=== PATIENT | male | born 1970 | race African-American/Black ===

== ENCOUNTER 2016-08-17 17:23 | Emergency (ER) | payer SELFPAY ==
[~2016-08-17] VITALS: Ht 177.8 cm; Wt 93.0 kg
[~2016-08-17 17:23] MED LIST: ACYC400T PO; ACYC800T PO; AMLO5TAB4 PO; HYDR-971 PO; HYDR1TAB19; HYDR25TA9 PO; OXYC-323 PO; OXYC1TAB9 PO; QUIN40TA PO; SULF1TAB24 PO
[2016-08-17 18:04] VITALS: BP 154/85
--- NOTE | 2016-08-17 18:37 | PHYS DOC ---
Past Medical History Past Medical History: Hypertension, STD Additional Past Medical Histor: genital herpes, CHRONIC BACK PAIN Past Surgical History: No Surgical History Additional Past Surgical Histo: R ankle Fx, cyst removed from R nipple Alcohol Use: Rarely Drug Use: None Adult General Chief Complaint Chief Complaint: SHOULDER INJURY HPI HPI Patient is a 46 year old male who presents with atraumatic left shoulder and arm pain that is worse with movement. Pain started one week ago. Reports he has tried several medications at home but is unable to report exact kinds or names. Denies shortness of breath, chest pain, edema, prior medical problems. Review of Systems Review of Systems Constitutional: Denies fever or chills Eyes: Denies change in visual acuity, redness, or eye pain HENT: Denies nasal congestion or sore throat Respiratory: Denies cough or shortness of breath Cardiovascular: No additional information not addressed in HPI GI: Denies abdominal pain, nausea, vomiting, bloody stools or diarrhea : Denies dysuria or hematuria Musculoskeletal: Left shoulder pain Integument: Denies rash or skin lesions Neurologic: Denies headache, focal weakness or sensory changes [] Endocrine: Denies polyuria or polydipsia [] Current Medications Current Medications Current Medications Medications (Trade) Dose Ordered Sig/Kylah Start Time Stop Time Status Last Admin Dose Admin Tramadol HCl (Ultram) 50 mg 1X ONCE 08/17/16 19:15 08/17/16 19:15 DC 08/17/16 18:48 50 MG Allergies Allergies Allergies Coded Allergies Type Severity Reaction Last Updated Verified aspirin Allergy Intermediate rash 03/14/14 Yes Physical Exam Physical Exam Constitutional: Well developed, well nourished, no acute distress, non-toxic appearance. HENT: Normocephalic, atraumatic, bilateral external ears normal, oropharynx moist, no oral exudates, nose normal. Eyes: PERRLA, EOMI, conjunctiva normal, no discharge. Neck: Normal range of motion, no tenderness, supple, no stridor. Cardiovascular:Heart rate regular rhythm, no murmur Lungs & Thorax: Bilateral breath sounds clear to auscultation Abdomen: Bowel sounds normal, soft, no tenderness, no masses, no pulsatile masses. Skin: Warm, dry, no erythema, no rash. Back: No tenderness, no CVA tenderness. Extremities: Full ROM with pain. tenderness on palpation of all aspects of shoulder. No deformity noted. Neurologic: Alert and oriented X 3, normal motor function, normal sensory function, no focal deficits noted. [] Psychologic: Affect normal, judgement normal, mood normal. [] Current Patient Data Vital Signs Vital Signs Date Time Temp Pulse Resp B/P Pulse Ox O2 Delivery O2 Flow Rate FiO2 08/17/16 18:04 98.4 90 20 100 Room Air 98.4 EKG EKG [] Radiology/Procedures Radiology/Procedures [] Impressions: 1. Left shoulder pain Course & Med Decision Making Course & Med Decision Making Pertinent Labs and Imaging studies reviewed. (See chart for details) [] Dragon Disclaimer Dragon Disclaimer This electronic medical record was generated, in whole or in part, using a voice recognition dictation system. Departure Departure Impression: Primary Impression: Shoulder pain, left Disposition: 01 HOME, SELF-CARE Condition: STABLE Referrals: NO PCP (PCP) MEME SAVAGE MD Patient Instructions: Shoulder Pain, [id number] Additional Instructions: 1. Take medication as prescribed. 2. Wear sling and follow up with Ortho as discussed 3. Return if problems or concerns ANNABEL RIVERA APRN Aug 17, 2016 18:37
[2016-08-17] MEDS ORDERED: TRAMADOL 50 MG TABLET. PO ONE (19:15)
== END 2016-08-17 18:52 | disposition home or self-care (01) ==
LOC: ER 17:23
DX: M25.512 Pain in left shoulder (principal); I10 Essential (primary) hypertension; G89.29 Other chronic pain; Z88.6 Allergy status to analgesic agent
CPT/HCPCS: 99283

== ENCOUNTER 2016-10-29 17:04 | Emergency (ER) | payer SELFPAY ==
[~2016-10-29] VITALS: Ht 177.8 cm; Wt 86.2 kg
[2016-10-29 17:30] VITALS: BP 151/101
[2016-10-29] MEDS ORDERED: VALA10005 PO (20:14)
[2016-10-29] MEDS ORDERED: TRAM-29 PO (20:14)
--- NOTE | 2016-10-29 20:14 | PHYS DOC ---
Past Medical History Past Medical History: Hypertension Additional Past Medical Histor: genital herpes, CHRONIC BACK PAIN Past Surgical History: Other Additional Past Surgical Histo: R ankle surgery, cyst removed from R chest Smoking: Less than 1pk/day Alcohol Use: None Drug Use: None Adult General Chief Complaint Chief Complaint: HAND PROBLEM HPI HPI Patient is a 46 year old male who presents with left hand pain for 4-5 days. He denies any injury. The pain is primarily in the left thumb, along the first metacarpal, and into the radial side of the wrist. He notices mild swelling of the area as well. He is left-hand dominant. 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 The patient also has a history of genital herpes. He states that he noticed new lesions starting yesterday. He sees a PCP at [facility]. Review of Systems Review of Systems Constitutional: Denies fever or chills. [] Musculoskeletal: Denies back pain. Reports left hand and thumb pain with mild swelling. Integument: Denies rash or skin lesions. Denies erythema or warmth of the left hand. Reports genital herpes lesions. Neurologic: Denies headache, focal weakness or sensory changes. [] Allergies Allergies Allergies Coded Allergies Type Severity Reaction Last Updated Verified aspirin Allergy Intermediate rash 03/14/14 Yes Physical Exam Physical Exam Constitutional: Well developed, well nourished, no acute distress, non-toxic appearance. [] HENT: Normocephalic, atraumatic, oropharynx moist. [] Eyes: PERRLA, EOMI, conjunctiva normal, no discharge. [] Skin: Warm, dry, no erythema. There is no erythema or warmth of the left hand to suggest infection. There are no external signs of trauma. Extremities: There is tenderness of the left hand extending along the dorsum of the thumb to the first metacarpal and to the radial side of the wrist, normal flexion with decreased extension, minimal edema. 2+ radial and ulnar pulses. Less than 2 second capillary refill distally. Light touch sensation intact distally. Neurologic: Alert and oriented X 3, normal motor function, normal sensory function, no focal deficits noted. [] Psychologic: Affect normal, judgement normal, mood normal. [] Current Patient Data Vital Signs Vital Signs Date Time Temp Pulse Resp B/P Pulse Ox O2 Delivery O2 Flow Rate FiO2 10/29/16 17:30 98.1 93 18 100 Room Air 98.1 EKG EKG [] Radiology/Procedures Radiology/Procedures Three-view x-ray of the left hand reviewed and interpreted by myself with Dr. Lemus. There are no acute fractures or dislocations. Course & Med Decision Making Course & Med Decision Making Pertinent Labs and Imaging studies reviewed. (See chart for details) Patient presents with signs and symptoms of de Quervain's tenosynovitis of the left hand. X-rays negative for bony injury. There are no signs of infection on exam. The patient is provided with a Velcro thumb spica splint. He is instructed to take ibuprofen at home for the inflammation. He is discharged home with prescriptions for Ultram and also Valtrex for his herpes outbreak. He' s given contact information for orthopedics for follow-up. Return precautions were discussed. He verbalizes understanding and agrees with plan. Dragon Disclaimer Dragon Disclaimer This electronic medical record was generated, in whole or in part, using a voice recognition dictation system. Departure Departure Impression: Primary Impression: De Quervain's tenosynovitis, left Additional Impression: Genital herpes Disposition: 01 HOME, SELF-CARE Condition: STABLE Referrals: IRENE VALENCIA MD Patient Instructions: De Quervain's Tenosynovitis-SportsMed, Genital Herpes Additional Instructions: Your x-ray did not show any broken bones or dislocations. You appear to have inflammation of a tendon in your hand causing the pain and swelling. Please take the prescribed pain medication as instructed. Do not drive or operate heavy machinery while taking pain medication. Please take ibuprofen at home to help decrease the inflammation in your hand. Please wear the provided splint to help decrease movement in your hand to help decrease your pain. Please follow-up with the orthopedic doctor listed below if your pain continues. Please follow-up with a primary care doctor regarding your genital herpes. Return to the emergency department if you have any new or concerning symptoms. Scripts Valacyclovir Hcl (Valtrex)1,000 Mg Tablet1 Tab PO DAILY 5 Days Prov:JESUSITA ADAMS 10/29/16 Tramadol Hcl (Ultram)50 Mg [id number] Mg PO Q6H PRN PAIN #20 TAB Prov:JESUSITA ADAMS 10/29/16 Problem Qualifiers Additional Impression: Genital herpes Herpes simplex infection site: unspecified Qualified Code: A60.00 - Herpesviral infection of urogenital system, unspecified JESUSITA ADAMS Oct 29, 2016 20:14
--- NOTE | 2016-10-30 07:58 | RAD ---
Indication pain particularly involving the thumb. No history of injury. AP oblique and lateral views of the left hand were obtained. There are some degenerative changes at the first metacarpal phalangeal joint. Acute bony finding is not seen. Small bony density at the base of the first metacarpal, on the ulnar side, is chronic and has an appearance similar to a study 09/18/2006. IMPRESSION: No acute bony finding
== END 2016-10-29 20:17 | disposition home or self-care (01) ==
LOC: ER 17:04
DX: M65.4 Radial styloid tenosynovitis [de Quervain] (principal); B00.9 Herpesviral infection, unspecified; I10 Essential (primary) hypertension; F17.200 Nicotine dependence, unspecified, uncomplicated; G89.29 Other chronic pain; Z88.6 Allergy status to analgesic agent
CPT/HCPCS: 73130; 99284

== ENCOUNTER 2017-03-28 16:55 | Emergency (ER) | payer SELFPAY ==
[~2017-03-28] VITALS: Ht 175.3 cm; Wt 88.5 kg
[~2017-03-28 16:55] MED LIST changes: +TRAM-48 PO; +VALA10005 PO
[2017-03-28 17:17] VITALS: BP 176/85
[2017-03-28] MEDS ORDERED: ACYCLOVIR 200 MG CAPSULE. PO STA (17:21)
[2017-03-28] MEDS ORDERED: oxyCODONE/APAP 5/325 1 TAB TABLET PO ONE (17:30)
[2017-03-28] MEDS ORDERED: SULF1TAB24 PO (17:34)
[2017-03-28] MEDS ORDERED: OXYC-323 PO (17:34)
[2017-03-28] MEDS ORDERED: ACYC800T PO (17:34)
[2017-03-28] MEDS ORDERED: NYST15CR TP (17:34)
--- NOTE | 2017-03-28 17:35 | PHYS DOC ---
Past Medical History Past Medical History: Hypertension Additional Past Medical Histor: genital herpes, CHRONIC BACK PAIN Past Surgical History: Other Additional Past Surgical Histo: R ankle surgery, cyst removed from R chest Alcohol Use: None Drug Use: None Adult General Chief Complaint Chief Complaint: SEXUALLY TRANSMITTED DISEASE HPI HPI Patient is a 46 year old male with history of hypertension and herpes who presents today for herpes outbreak that began a couple days ago. Patient denies any concerns for STDs. He is also complaining of a no rash on the left external ear with drainage. Review of Systems Review of Systems Constitutional: Denies fever or chills [] Eyes: Denies change in visual acuity, redness, or eye pain [] HENT: left external ear lesions. Respiratory: Denies cough or shortness of breath [] Cardiovascular: No additional information not addressed in HPI [] GI: Denies abdominal pain, nausea, vomiting, bloody stools or diarrhea [] : Herpes outbreak Musculoskeletal: Denies back pain or joint pain [] Integument: Denies rash or skin lesions [] Neurologic: Denies headache, focal weakness or sensory changes [] Endocrine: Denies polyuria or polydipsia [] Allergies Allergies Allergies Coded Allergies Type Severity Reaction Last Updated Verified aspirin Allergy Intermediate rash 03/14/14 Yes Physical Exam Physical Exam Constitutional: Well developed, well nourished, no acute distress, non-toxic appearance. [] HENT: Normocephalic, atraumatic, bilateral external ears normal, oropharynx moist, no oral exudates, nose normal. [] Left external ear with mild amount of dry peeling rash some of it draining suspicious of a fungal infection. Eyes: PERRLA, EOMI, conjunctiva normal, no discharge. [] Neck: Normal range of motion, no tenderness, supple, no stridor. [] Cardiovascular:Heart rate regular rhythm, no murmur [] Lungs & Thorax: Bilateral breath sounds clear to auscultation [] Abdomen: Bowel sounds normal, soft, no tenderness, no masses, no pulsatile masses. [] Male exam External is covered with moderate amount of herpes lesions some of the lesions appear to have developed a bacterial infection with small amount of drainage. Skin: Warm, dry, no erythema, no rash. [] Back: No tenderness, no CVA tenderness. [] Extremities: No tenderness, no cyanosis, no clubbing, ROM intact, no edema. [] Neurologic: Alert and oriented X 3, normal motor function, normal sensory function, no focal deficits noted. [] Psychologic: Affect normal, judgement normal, mood normal. [] EKG EKG [] Radiology/Procedures Radiology/Procedures [] Course & Med Decision Making Course & Med Decision Making Pertinent Labs and Imaging studies reviewed. (See chart for details) Patient is in the ED with herpes outbreak. He is well known to this ED is for these outbreaks. He was discharged with acyclovir. Some of the lesions have tiny little bacterial infection. I put him on Bactrim for 10 days. He also has a fungal infection on the right external ear, I put him on nystatin. Follow-up with the health department and PCP for his chronic Condition including her blood pressure and herpes. Dragon Disclaimer Dragon Disclaimer This electronic medical record was generated, in whole or in part, using a voice recognition dictation system. Departure Departure Impression: Primary Impression: Elevated BP Additional Impressions: Genital herpes Cutaneous candidiasis Skin infection Disposition: HOME, SELF-CARE Condition: STABLE Referrals: UNKNOWN PCP NAME (PCP) follow up with the health department or your doctor in 1 week Patient Instructions: Cutaneous Candidiasis, Genital Herpes, Hypertension Additional Instructions: You were seen for herpes. Take the medications prescribed as ordered. I did put a refill on your herpes medication. You can use it next time you have an outbreak. Ensure you complete your antibiotics. Use the rest of the medications as prescribed and follow up with the health today and or your own doctor in one week. Scripts Nystatin (NYSTATIN) 15 Gm Cream..g. 1 IRAIS TP TID, #30 GM Prov: ELIEZER MANZANO APRN 03/28/17 Oxycodone/Apap 5-325 (PERCOCET 5-325 MG TABLET) 1 Each Tablet 1-2 TAB PO Q4-6HRS, #14 TAB MUST FILL ACYCLOVIR BEFORE OXYCODONE Prov: ELIEZER MANZANO APRN 03/28/17 Sulfamethoxazole/Trimethoprim (BACTRIM DS TABLET) 1 Each Tablet 1 TAB PO BID, #20 TAB Prov: ELIEZER MANZANO APRN 03/28/17 Acyclovir (ACYCLOVIR) 800 Mg Tablet 1 TAB PO 5XDAY, #50 TAB 2 Refills Prov: ELIEZER MANZANO APRN 03/28/17 Problem Qualifiers Additional Impressions: Genital herpes Herpes simplex infection site: penis Qualified Codes: A60.01 - Herpesviral infection of penis ELIEZER MANZANO [employer] Mar 28, 2017 17:35
== END 2017-03-28 17:41 | disposition home or self-care (01) ==
LOC: ER 16:55
DX: A60.01 Herpesviral infection of penis (principal); B37.2 Candidiasis of skin and nail; I10 Essential (primary) hypertension; G89.29 Other chronic pain; Z88.6 Allergy status to analgesic agent
CPT/HCPCS: 99283

== ENCOUNTER 2017-04-27 13:34 | Emergency (ER) | payer SELFPAY ==
[~2017-04-27] VITALS: Ht 177.8 cm; Wt 90.7 kg
[~2017-04-27 13:34] MED LIST changes: +NYST15CR TP
[2017-04-27 13:50] VITALS: BP 128/71
[2017-04-27] MEDS ORDERED: HYDROcodone/APAP 5/325MG 1 TAB TABLET PO ONE (14:30)
--- NOTE | 2017-04-27 14:30 | PHYS DOC ---
Past Medical History Past Medical History: Hypertension, DC Additional Past Medical Histor: genital herpes, CHRONIC BACK PAIN Past Surgical History: Other Additional Past Surgical Histo: rt knee surgery, rt chest nipple surgery Additional Information: 1/2 pack a day Alcohol Use: None Drug Use: None Adult General Chief Complaint Chief Complaint: HAND PROBLEM HPI HPI Patient is a 47 year old male who presents with left hand/wrist pain. He states symptoms began 6 months ago, no trauma, just gradual onset of aching pain to radial wrist. this is his dominant hand. This week worsening pain after holding a door open for a woman. He has been wearing a removable wrist splint since he was seen here previously 6 months ago with decreased mobility & function in his daily life. Has not followed up with primary care or orthopedics. States NSAIDs do not help at all & he needs a stronger pain medication. Review of Systems Review of Systems Constitutional: Denies fever or chills HENT: Denies nasal congestion or sore throat Respiratory: Denies cough Cardiovascular: Denies chest pain GI: Denies abdominal pain, nausea, vomiting Musculoskeletal: Reports hand & wrist pain Integument: Denies rash Neurologic: Denies headache Current Medications Current Medications Current Medications Medications (Trade) Dose Ordered Sig/Kylah Start Time Stop Time Status Last Admin Dose Admin Acetaminophen/ Hydrocodone Bitart (Lortab 5/325) 1 tab 1X ONCE 04/27/17 14:30 04/27/17 14:31 DC 04/27/17 14:40 1 TAB Allergies Allergies Allergies Coded Allergies Type Severity Reaction Last Updated Verified aspirin Allergy Intermediate rash 03/14/14 Yes Physical Exam Physical Exam Constitutional: Well developed, well nourished, no acute distress, non-toxic appearance. HENT: Normocephalic, atraumatic, bilateral external ears normal, oropharynx moist, nose normal. Eyes: conjunctiva normal, no discharge. Cardiovascular: no edema. Lungs & Thorax: no respiratory distress. Abdomen: nondistended. Skin: Warm, dry, no erythema, no rash. Extremities: left wrist no swelling/deformity, generalized tenderness over radial aspect of thumb & wrist, painful flexion/extension, radial pulse 2+, reluctant to demonstrate motor function to radial/median/ulnar nerves but they do appear to be intact with much encouragement. no erythema/warmth/swelling. Neurologic: Alert and oriented X 3 Current Patient Data Vital Signs Vital Signs Date Time Temp Pulse Resp B/P (MAP) Pulse Ox O2 Delivery O2 Flow Rate FiO2 04/27/17 14:40 18 97 Room Air 04/27/17 13:50 97.9 98 97.9 EKG EKG [] Radiology/Procedures Radiology/Procedures PROCEDURE: WRIST 3V LEFT Left wrist, 3 views, 04/27/2017: History: Injury, pain No acute fracture or dislocation is identified. There are mild degenerative changes at the first CMC joint with small chronic appearing periarticular calcifications. There are mild degenerative changes at the radiocarpal articulation. IMPRESSION: 1. Mild degenerative change. 2. No acute bony abnormality is detected. DICTATED and SIGNED BY: ROCCO LUCAS MD DATE: 04/27/17 3405[] Course & Med Decision Making Course & Med Decision Making Pertinent Labs and Imaging studies reviewed. (See chart for details) The patient presents with wrist pain. X-ray shows arthritic changes but no acute bony abnormality. Previously given removable splint for de quervain's tenosynovitis, now having generalized pain & decreased mobility due to chronic pain. I think he would benefit from physical therapy. We discussed at length that medications are not going to fix this problem especially after he has been avoiding use of this hand/wrist for 6 months. It is very important to follow up with primary care as soon as possible, or even Dr. Valencia in the orthopedic clinic. Encouraged him that he needs to be proactive in order to preserve function. He was very insistent that he needed a prescription to help him sleep at night so I ultimately gave him 6 tablets of norco but chronic pain management from the ED is not an appropriate solution to this problem. [] Dragon Disclaimer Dragon Disclaimer This electronic medical record was generated, in whole or in part, using a voice recognition dictation system. Departure Departure Impression: Primary Impression: Wrist pain, left Disposition: 01 HOME, SELF-CARE Condition: STABLE Referrals: NO PCP (PCP) IRENE VALENCIA MD Patient Instructions: Wrist Pain, [id number] Additional Instructions: You seen in the emergency department today for chronic wrist pain. As we discussed, pills are not likely to fix this problem. Take ibuprofen every 8 hours. You may take Jefferson for severe pain but your pain will probably continue when you run out of pills. Wear the splint for comfort. Apply ice, continue range of motion exercises. You are going to need to physical therapy. You need to follow-up in the orthopedic clinic with Dr. Valencia as soon as possible. Scripts Hydrocodone/Apap 5-325 (NORCO 5-325 TABLET) 1 Each Tablet 1 TAB PO PRN Q6HRS Y for PAIN, #6 TAB 0 Refills Prov: DEMETRIO HOWARD MD 04/27/17 DEMETRIO HOWARD MD Apr 27, 2017 14:30
[2017-04-27] MEDS ORDERED: HYDR-971 PO (14:45)
--- NOTE | 2017-04-27 14:53 | RAD ---
Left wrist, 3 views, 04/27/2017: History: Injury, pain No acute fracture or dislocation is identified. There are mild degenerative changes at the first CMC joint with small chronic appearing periarticular calcifications. There are mild degenerative changes at the radiocarpal articulation. IMPRESSION: 1. Mild degenerative change. 2. No acute bony abnormality is detected.
== END 2017-04-27 15:00 | disposition home or self-care (01) ==
LOC: ER 13:34
DX: M25.532 Pain in left wrist (principal); M79.642 Pain in left hand; I10 Essential (primary) hypertension; I25.2 Old myocardial infarction; G89.29 Other chronic pain; F17.200 Nicotine dependence, unspecified, uncomplicated; Z88.6 Allergy status to analgesic agent
CPT/HCPCS: 73110; 99284

== ENCOUNTER 2017-06-28 10:56 | Emergency (ER) | payer SELFPAY ==
[~2017-06-28] VITALS: Ht 177.8 cm; Wt 90.7 kg
--- NOTE | 2017-06-28 12:07 | PHYS DOC ---
Past Medical History Past Medical History: Hypertension, [place] Additional Past Medical Histor: genital herpes, CHRONIC BACK PAIN Past Surgical History: Other Additional Past Surgical Histo: rt knee surgery, rt chest nipple surgery Alcohol Use: None Drug Use: None Adult General Chief Complaint Chief Complaint: TESTICULAR PAIN OR INJURY [facility] HPI Patient is a 47 year old -[place] male who presents with scrotal pain and swelling. He states he has a history of herpes for the last 7 years and can' t afford any acyclovir. He states approximately 7 days ago he started having an outbreak of herpes and now he is noticing "weeping of the scrotum". He states he has constant pain in his scrotum and into his rectum. He states he feels nauseated and he hasn't eaten much over the last 2-3 days. He also feels like he 's been having a fever and hasnt checked his temperature. He denies any chills. He denies any constipation or diarrhea. He also states that his blood pressure medicine and can afford that as well. He states he hasn't been sexually active for several months and that his herpes flares up about once a month. He denies any dysuria. He states his pain got worse 24-48 hours ago in his testicles. Review of Systems Review of Systems Constitutional: Denies fever or chills [] Eyes: Denies change in visual acuity, redness, or eye pain [] HENT: Denies nasal congestion or sore throat [] Respiratory: Denies cough or shortness of breath [] Cardiovascular: No additional information not addressed in HPI [] GI: Denies abdominal pain, nausea, vomiting, bloody stools or diarrhea [] : Denies dysuria or hematuria [] Musculoskeletal: Denies back pain or joint pain [] Integument: Denies rash or skin lesions [] Neurologic: Denies headache, focal weakness or sensory changes [] Endocrine: Denies polyuria or polydipsia [] All other systems were reviewed and found to be within normal limits, except as documented in this note. Current Medications Current Medications Current Medications Medications (Trade) Dose Ordered Sig/Kylah Start Time Stop Time Status Last Admin Dose Admin Fentanyl Citrate (Fentanyl 2ml Vial) 50 mcg PRN Q15MIN PRN 06/28/17 15:30 06/28/17 15:59 DC 06/28/17 15:35 50 MCG Hydromorphone HCl (Dilaudid) 0.5 mg PRN Q15MIN PRN 06/28/17 12:30 06/28/17 15:59 DC 06/28/17 14:34 0.5 MG Ondansetron HCl (Zofran) 4 mg 1X ONCE 06/28/17 12:30 06/28/17 12:31 DC 06/28/17 12:48 4 MG Sodium Chloride 1,000 ml @ 1,000 mls/hr Q1H 06/28/17 12:27 06/28/17 13:26 DC 06/28/17 12:47 1,000 MLS/HR Allergies Allergies Allergies Coded Allergies Type Severity Reaction Last Updated Verified aspirin Allergy Intermediate rash 03/14/14 Yes Physical Exam Physical Exam Constitutional: Well developed, well nourished, no acute distress, non-toxic appearance. [] HENT: Normocephalic, atraumatic, bilateral external ears normal, oropharynx moist, no oral exudates, nose normal. [] Eyes: PERRLA, EOMI, conjunctiva normal, no discharge. [] Neck: Normal range of motion, no tenderness, supple, no stridor. [] Cardiovascular:Heart rate regular rhythm, no murmur [] Lungs & Thorax: Bilateral breath sounds clear to auscultation [] Abdomen/genital exam: Bowel sounds normal, soft, no tenderness, no masses, no pulsatile masses. Tender to palpation and thickening of the scrotal wall with excessive regua of his scrotum, testicles tender bilaterally, difficult exam based on scrotal wall thickness. No active lesions appreciated. Rectal exam with normal tone, no masses, no blood noted Skin: Warm, dry, no erythema, no rash. [] Back: No tenderness, no CVA tenderness. [] Extremities: No tenderness, no cyanosis, no clubbing, ROM intact, no edema. [] Neurologic: Alert and oriented X 3, normal motor function, normal sensory function, no focal deficits noted. [] Psychologic: Affect normal, judgement normal, mood normal. [] Current Patient Data Vital Signs Vital Signs Date Time Temp Pulse Resp B/P (MAP) Pulse Ox O2 Delivery O2 Flow Rate FiO2 06/28/17 14:34 16 06/28/17 14:30 80 124/78 (93) 98 Room Air 06/28/17 11:19 97.9 97.9 Lab Values Laboratory Tests Test 06/28/17 12:00 06/28/17 12:34 06/28/17 13:53 Urine Collection Type Unknown Urine Color Yellow Urine Clarity Cloudy Urine pH 6.5 Urine Specific [place] 1.020 Urine Protein 100 mg/dL (NEG-TRACE) Urine Glucose (UA) Negative mg/dL (NEG) Urine Ketones (Stick) Negative mg/dL (NEG) Urine Blood Negative (NEG) Urine Nitrite Negative (NEG) Urine Bilirubin Negative (NEG) Urine Urobilinogen Dipstick 1.0 mg/dL (0.2 mg/dL) Urine Leukocyte Esterase Negative (NEG) Urine RBC Occ /HPF (0-2) Urine WBC 0 /HPF (0-4) Urine Squamous Epithelial Cells Occ /LPF Urine Bacteria 0 /HPF (0-FEW) Urine Mucus Slight /LPF Urine Opiates Screen Neg (NEG) Urine Methadone Screen Pos (NEG) Urine Barbiturates Neg (NEG) Urine Phencyclidine Screen Neg (NEG) Urine Amphetamine/Methamphetamine Neg (NEG) Urine Benzodiazepines Screen Pos (NEG) Urine Cocaine Screen Neg (NEG) Urine Cannabinoids Screen Neg (NEG) Urine Ethyl Alcohol Neg (NEG) White Blood Count 7.5 x10^3/uL (4.0-11.0) Red Blood Count 4.41 x10^6/uL (4.30-5.70) Hemoglobin 11.9 g/dL (13.0-17.5) L Hematocrit 36.3 % (39.0-53.0) L Mean Corpuscular Volume 82 fL (79-100) Mean Corpuscular Hemoglobin 27 pg (25-35) Mean Corpuscular Hemoglobin Concent 33 g/dL (31-37) Red Cell Distribution Width 14.4 % (11.5-14.5) Platelet Count 181 x10^3/uL (140-400) Neutrophils (%) (Auto) 79 % (31-73) H Lymphocytes (%) (Auto) 14 % (24-48) L Monocytes (%) (Auto) 6 % (0-9) Eosinophils (%) (Auto) 1 % (0-3) Basophils (%) (Auto) 0 % (0-3) Neutrophils # (Auto) 5.9 x10^3uL (1.8-7.7) Lymphocytes # (Auto) 1.0 x10^3/uL (1.0-4.8) Monocytes # (Auto) 0.5 x10^3/uL (0.0-1.1) Eosinophils # (Auto) 0.1 x10^3/uL (0.0-0.7) Basophils # (Auto) 0.0 x10^3/uL (0.0-0.2) Prothrombin Time 13.1 SEC (11.7-14.0) Prothrombin Time INR 1.1 (0.8-1.1) PTT 27 SEC (24-38) Sodium Level 138 mmol/L (136-145) Potassium Level 3.9 mmol/L (3.5-5.1) Chloride Level 101 mmol/L (98-107) Carbon Dioxide Level 29 mmol/L (21-32) Anion Gap 8 (6-14) Blood Urea Nitrogen 16 mg/dL (8-26) Creatinine 1.0 mg/dL (0.7-1.3) Estimated GFR (Cockcroft-Gault) 96.1 Glucose Level 97 mg/dL (70-99) Calcium Level 9.1 mg/dL (8.5-10.1) Total Bilirubin 0.2 mg/dL (0.2-1.0) Direct Bilirubin 0.1 mg/dL (0.0-0.2) Aspartate Amino Transferase (AST) 38 U/L (15-37) H Alanine Aminotransferase (ALT) 34 U/L (16-63) Alkaline Phosphatase 71 U/L (46-116) Creatine Kinase 269 U/L (39-308) Creatine Kinase MB (Mass) < 0.5 ng/mL (0.0-3.6) Creatine Kinase MB Relative Index % (0-4) Total Protein 6.9 g/dL (6.4-8.2) Albumin 3.3 g/dL (3.4-5.0) L Lipase 225 U/L (73-393) Stool Occult Blood Negative (NEG) Laboratory Tests 06/28/17 12:34 Laboratory Tests 06/28/17 12:34 EKG EKG [] Radiology/Procedures Radiology/Procedures [facility] [address] [place] [address] IMAGING REPORT Signed PATIENT: ROQUE ARAUJO ACCOUNT: [id number] : 1970 LOCATION: ER AGE: 47 SEX: M EXAM STATUS: REG ER ORD. PHYSICIAN: AMANDA GOETZ MD REASON: pain/SWELLING/ HX OF HERPES PROCEDURE: TESTICULAR/SCROTUM Testicular ultrasound History: pain/SWELLING/ HX OF HERPES . Comparison: Testicular ultrasound 07/25/2014. Technique: Multiple grayscale, color flow doppler and spectral Doppler analysis images of the scrotum are obtained. Findings: Right testicle measures 3.5 x 1.6 x 2.7 cm. Right testicle demonstrates normal parenchymal echogenicity. The right epididymis is unremarkable. Left testicle measures 3.3 x 1.9 x 2.6 cm. Left testicle demonstrates normal parenchymal echogenicity. The left epididymis is unremarkable. There is trace left hydrocele. There is no varicocele. There is no right hydrocele or varicocele. No hyperemia of the epididymides is seen. There is severe scrotal wall thickening bilaterally. No hyperemia is appreciated. There is blood flow in the right testicle although the blood flow may be diminished. Unable to demonstrate blood flow in the left testicle. IMPRESSION: 1. Severe scrotal wall thickening bilaterally. Finding is more severe than on prior study. 2. Unable to demonstrate blood flow in the left testicle. Cannot exclude torsion. There are no secondary signs of torsion. Grayscale appearance of the left testicle is relatively normal. DICTATED and SIGNED BY: ROXANE ANNA MD DATE: 06/28/17 6622 CC: AMANDA GOETZ MD; NO PCP ~ Impressions: Left Testicular torsion Course & Med Decision Making Course & Med Decision Making Pertinent Labs and Imaging studies reviewed. (See chart for details) Ultrasound shows torsion of the left testicle and decreased blood flow to the right. Patient was initially given Dilaudid 0.5 mg iv repeated with his pain not being controlled and was switched then to 50 g fentanyl. I spoke with who states that the operating room is backed up and will be several hours before they would be able to get him to the operating room. Therefore I called [facility] who accepts the patient for transfer with Dr. Hood and I spoke with urology. I informed the urologist of the ultrasound report, labs and physical exam findings. He wants the patient transferred emergently to [facility] to possibly go to the operating room. I've explained this to the patient is agreeable to the plan. Patient's in stable condition this time being transferred emergently to [facility]. Dragon Disclaimer Dragon Disclaimer This electronic medical record was generated, in whole or in part, using a voice recognition dictation system. Departure Departure Impression: Primary Impression: Testicular torsion Disposition: 02 TRANSFER T-[facility] Condition: STABLE Referrals: NO PCP (PCP) AMANDA GOETZ MD Jun 28, 2017 12:07
[2017-06-28 12:17] LABS: BILIRUBIN,URINE NEGATIVE (NEG); GLUCOSE,URINE NEGATIVE (NEG); NITRITE,URINE NEGATIVE (NEG); PH,URINE 6.5; PROTEIN,URINE 100 mg/dL (NEG-TRACE)
[2017-06-28] MEDS ORDERED: IV NORMAL SALINE 1000ML BAG 1,000 ML IV SCH (12:27)
[2017-06-28] MEDS ORDERED: ONDANSETRON PF 4 MG/2 ML VIAL. IV ONE (12:30)
[2017-06-28 12:41] LABS: BACTERIA,URINE 0 /HPF (0-FEW); RBC,URINE OCC /HPF (0-2); SQUAMOUS EPITHELIAL CELL,UR OCC /LPF; WBC,URINE 0 /HPF (0-4)
[2017-06-28 12:42] LABS: BASO % 0 % (0-3); EOS % 1 % (0-3); HEMATOCRIT 36.3 % (39.0-53.0); HEMOGLOBIN 11.9 g/dL (13.0-17.5); LYMPH % 14 % (24-48); MEAN CORPUSCULAR HEMOGLOBIN 27 pg (25-35); MEAN CORPUSCULAR HGB CONC 33 g/dL (31-37); MEAN CORPUSCULAR VOLUME 82 fL (79-100); MONO % 6 % (0-9); NEUT % 79 % (31-73); PLATELET COUNT 181 x10^3/uL (140-400); RED BLOOD COUNT 4.41 x10^6/uL (4.30-5.70); RED CELL DISTRIBUTION WIDTH 14.4 % (11.5-14.5); WHITE BLOOD COUNT 7.5 x10^3/uL (4.0-11.0)
[2017-06-28] MEDS: HYDROmorphone 2 MG/ML VIAL IV/SQ PRN ×3 (12:48→14:34)
[2017-06-28 12:53] LABS: CALCIUM 9.1 mg/dL (8.5-10.1); GFR 96.1; POTASSIUM 3.9 mmol/L (3.5-5.1)
[2017-06-28 12:59] LABS: ALBUMIN 3.3 g/dL (3.4-5.0); DIRECT BILIRUBIN 0.1 mg/dL (0.0-0.2); TOTAL BILIRUBIN 0.2 mg/dL (0.2-1.0); TOTAL PROTEIN 6.9 g/dL (6.4-8.2)
[2017-06-28 13:03] LABS: INR 1.1 (0.8-1.1); PROTHROMBIN TIME PATIENT 13.1 SEC (11.7-14.0)
[2017-06-28 13:08] LABS: CKMB MASS < 0.5 ng/mL (0.0-3.6); CREATINE KINASE 269 U/L (39-308)
[2017-06-28 13:32] LABS: BARBITURATES NEG (NEG); BENZODIAZEPINES POS (NEG); CANNABINOIDS NEG (NEG); COCAINE NEG (NEG); METHADONE POS (NEG); OPIATES NEG (NEG); PHENCYCLIDINE NEG (NEG)
--- NOTE | 2017-06-28 13:55 | RAD ---
Testicular ultrasound History: pain/SWELLING/ HX OF HERPES . Comparison: Testicular ultrasound 07/25/2014. Technique: Multiple grayscale, color flow doppler and spectral Doppler analysis images of the scrotum are obtained. Findings: Right testicle measures 3.5 x 1.6 x 2.7 cm. Right testicle demonstrates normal parenchymal echogenicity. The right epididymis is unremarkable. Left testicle measures 3.3 x 1.9 x 2.6 cm. Left testicle demonstrates normal parenchymal echogenicity. The left epididymis is unremarkable. There is trace left hydrocele. There is no varicocele. There is no right hydrocele or varicocele. No hyperemia of the epididymides is seen. There is severe scrotal wall thickening bilaterally. No hyperemia is appreciated. There is blood flow in the right testicle although the blood flow may be diminished. Unable to demonstrate blood flow in the left testicle. IMPRESSION: 1. Severe scrotal wall thickening bilaterally. Finding is more severe than on prior study. 2. Unable to demonstrate blood flow in the left testicle. Cannot exclude torsion. There are no secondary signs of torsion. Grayscale appearance of the left testicle is relatively normal.
[2017-06-28 14:30] VITALS: BP 124/78
[2017-06-28 14:32] LABS: NEG OBC FOB NEG; POS OBC FOB POS
[2017-06-28] MEDS ORDERED: fentaNYL PF VIAL 100 MCG/2 ML VIAL IV PRN (15:30)
== END 2017-06-28 15:35 | disposition short-term general hospital (02) ==
LOC: ER 10:56
DX: N44.00 Torsion of testis, unspecified (principal); I10 Essential (primary) hypertension; G89.29 Other chronic pain; I25.2 Old myocardial infarction; Z88.6 Allergy status to analgesic agent
CPT/HCPCS: 36415; 76870; 80048; 80076; 80307; 81001; 82274; 82553; 83690; 85025; 85610; 85730; 87491; 87591; 96361; 96374; 96375; 96376; 99285; J1170; J2405; J3010; J7030; G0479

== ENCOUNTER 2017-07-31 16:29 | Emergency (ER) | payer SELFPAY ==
[~2017-07-31] VITALS: Ht 177.8 cm; Wt 90.7 kg
[2017-07-31 17:30] VITALS: BP 163/93
--- NOTE | 2017-07-31 18:02 | PHYS DOC ---
Past Medical History Past Medical History: Hypertension, [place] Additional Past Medical Histor: genital herpes, CHRONIC BACK PAIN Past Surgical History: Other Additional Past Surgical Histo: rt knee surgery, rt chest nipple surgery, TESTICULAR SURGERY Alcohol Use: None Drug Use: None Adult General Chief Complaint Chief Complaint: OTHER COMPLAINTS [facility] Patient is a 47 year old male presents to the emergency department stating that he is having a herpes outbreak. He states he does not have a primary care physician. He states that he's trying to get his social security to cover him however he states that he did try to get into [facility] and they stated that due to the issue with his social security they would not be able to see him. Patient presents to the emergency department stating that he has having lesions on has perineal area. He hasn't sustained days having painful urination. Patient states that he's been having more issues with his herpes since he has had this testicular torsion on the first part of June. Patient denies any fever, chills or any nausea or vomiting. Review of Systems Review of Systems Constitutional: Denies fever or chills [] Eyes: Denies change in visual acuity, redness, or eye pain [] HENT: Denies nasal congestion or sore throat [] Respiratory: Denies cough or shortness of breath [] Cardiovascular: No additional information not addressed in HPI [] GI: Denies abdominal pain, nausea, vomiting, bloody stools or diarrhea [] : dysuria denies hematuria [] Musculoskeletal: Denies back pain or joint pain [] Integument: Denies rash or skin lesions. Perineal lesion Neurologic: Denies headache, focal weakness or sensory changes [] Endocrine: Denies polyuria or polydipsia [] All other systems were reviewed and found to be within normal limits, except as documented in this note. Allergies Allergies Allergies Coded Allergies Type Severity Reaction Last Updated Verified aspirin Allergy Intermediate rash 03/14/14 Yes Physical Exam Physical Exam Constitutional: Well developed, well nourished, no acute distress, non-toxic appearance. [] HENT: Normocephalic, atraumatic, bilateral external ears normal, oropharynx moist, no oral exudates, nose normal. [] Eyes: PERRLA, EOMI, conjunctiva normal, no discharge. [] Neck: Normal range of motion, no tenderness, supple, no stridor. [] Cardiovascular:Heart rate regular rhythm, no murmur [] Lungs & Thorax: Bilateral breath sounds clear to auscultation [] Skin: Warm, dry, no erythema, no rash. Patient with red raised painful areas noted to the perineal area. Extremities: No tenderness, no cyanosis, no clubbing, ROM intact, no edema. [] Neurologic: Alert and oriented X 3, normal motor function, normal sensory function, no focal deficits noted. [] Psychologic: Affect normal, judgement normal, mood normal. [] Current Patient Data Vital Signs Vital Signs Date Time Temp Pulse Resp B/P (MAP) Pulse Ox O2 Delivery O2 Flow Rate FiO2 07/31/17 17:30 98.1 75 18 100 Room Air 98.1 Lab Values Laboratory Tests Test 07/31/17 18:05 Urine Collection Type Unknown Urine Color Yellow Urine Clarity Clear Urine pH 6.0 Urine Specific [place] 1.015 Urine Protein 100 mg/dL (NEG-TRACE) Urine Glucose (UA) Negative mg/dL (NEG) Urine Ketones (Stick) Negative mg/dL (NEG) Urine Blood Trace (NEG) Urine Nitrite Negative (NEG) Urine Bilirubin Negative (NEG) Urine Urobilinogen Dipstick 0.2 mg/dL (0.2 mg/dL) Urine Leukocyte Esterase Negative (NEG) Urine RBC 0 /HPF (0-2) Urine WBC 0 /HPF (0-4) Urine Squamous Epithelial Cells Occ /LPF Urine Bacteria 0 /HPF (0-FEW) Urine Mucus Slight /LPF EKG EKG [] Radiology/Procedures Radiology/Procedures [] Course & Med Decision Making Course & Med Decision Making Pertinent Labs and Imaging studies reviewed. (See chart for details) Patients urinalysis was negative for urinary tract infection. Patient will be placed on Valtrex for the next 5 days. Patient was encouraged to follow up with a primary care physician for further treatment of his herpes. Patient will be discharged home in stable condition signs and symptoms to return back to emergency has been provided. All questions and concerns been answered at the patients bedside. Patient will be discharged home in stable condition. [] Dragon Disclaimer Dragon Disclaimer This electronic medical record was generated, in whole or in part, using a voice recognition dictation system. Departure Departure Impression: Primary Impression: Herpes simplex virus infection Disposition: HOME, SELF-CARE Condition: STABLE Referrals: NO PCP (PCP) Patient Instructions: Herpes Simplex Additional Instructions: Activity as tolerated. Avoid any type of sexual encounters while having a herpes breakout. Medications as prescribed. Follow-up primary care physician for further evaluation and treatment for your herpes. Return back to the emergency department as needed for signs and symptoms that become worse. Scripts Valacyclovir Hcl (VALTREX) 1,000 Mg Tablet 1 TAB PO DAILY, #20 TAB 0 Refills Take 1 table daily for the next 5 days. Prov: DANNA HIDALGO APRN 07/31/17 DANNA HIDALGO APRN Jul 31, 2017 18:02
[2017-07-31 18:41] LABS: BILIRUBIN,URINE NEGATIVE (NEG); GLUCOSE,URINE NEGATIVE (NEG); NITRITE,URINE NEGATIVE (NEG); PROTEIN,URINE 100 mg/dL (NEG-TRACE); UROBILINOGEN,URINE 0.2 mg/dL (0.2 mg/dL)
[2017-07-31 18:54] LABS: BACTERIA,URINE 0 /HPF (0-FEW); RBC,URINE 0 /HPF (0-2); SQUAMOUS EPITHELIAL CELL,UR OCC /LPF; WBC,URINE 0 /HPF (0-4)
[2017-07-31] MEDS ORDERED: VALA10005 PO (19:03)
== END 2017-07-31 19:07 | disposition home or self-care (01) ==
LOC: ER 16:29
DX: B00.9 Herpesviral infection, unspecified (principal); I10 Essential (primary) hypertension; I25.2 Old myocardial infarction; G89.29 Other chronic pain; Z88.6 Allergy status to analgesic agent
CPT/HCPCS: 81001; 99283

== ENCOUNTER 2017-09-11 19:19 | Emergency (ER) | payer SELFPAY ==
[2017-09-11] MEDS: IBUPROFEN 600 MG TABLET. PO ×2 (21:00)
[2017-09-11] MEDS: HYDROcodone/APAP 5/325MG 1 TAB TABLET PO ×2 (21:38)
[2017-09-11] MEDS: FLUCONAZOLE 100 MG TABLET. PO ×2 (21:39)
[2017-09-11] MEDS: LISINOPRIL 10 MG TABLET PO ×2 (21:40)
[2017-09-11] MEDS: valACYclovir 500 MG TABLET. PO ×2 (22:20)
[2017-09-11] MEDS ORDERED: IV NORMAL SALINE 1000ML BAG 1,000 ML IV ×2 (22:30)
[2017-09-11] MEDS ORDERED: IPRATRPIUM/ALBUTEROL 0.5/2.5MG 3 ML NEBU. NEB ×2 (23:00)
[2017-09-11] MEDS ORDERED: methylPREDNISolone SOD SUCC PF 125 MG/2 ML VIAL. IV ×2 (23:00)
== END 2017-09-11 23:20 | disposition home or self-care (01) ==
LOC: ER 19:19
DX: B00.9 Herpesviral infection, unspecified (principal); I10 Essential (primary) hypertension; G89.29 Other chronic pain; I25.2 Old myocardial infarction; Z88.6 Allergy status to analgesic agent
CPT/HCPCS: 99284

== ENCOUNTER 2018-01-10 07:45 | Emergency (ER) | payer SELFPAY | END 2018-01-10 08:20 | disposition home or self-care (01) | LOC: ER 07:45 | DX: A60.01 Herpesviral infection of penis (principal); I10 Essential (primary) hypertension; I25.2 Old myocardial infarction; Z88.6 Allergy status to analgesic agent | CPT/HCPCS: 99283 ==

== ENCOUNTER 2018-02-20 10:54 | Emergency (ER) | payer SELFPAY | END 2018-02-20 11:32 | disposition home or self-care (01) | LOC: ER 11:32 | DX: A60.02 Herpesviral infection of other male genital organs (principal); I10 Essential (primary) hypertension; I25.2 Old myocardial infarction; G89.29 Other chronic pain; Z88.6 Allergy status to analgesic agent | CPT/HCPCS: 99283 ==

== ENCOUNTER 2018-02-28 00:36 | Emergency (ER) | payer SELFPAY ==
[2018-02-28] MEDS: DEXAMETHASONE 4 MG TABLET PO (02:09)
[2018-02-28] MEDS: oxyCODONE/APAP 5/325 1 TAB TABLET PO (02:10)
== END 2018-02-28 02:10 | disposition home or self-care (01) ==
LOC: ER 00:36
DX: B00.89 Other herpesviral infection (principal); I10 Essential (primary) hypertension; I25.2 Old myocardial infarction; G89.29 Other chronic pain; Z88.6 Allergy status to analgesic agent
CPT/HCPCS: 99283; J8540

== ENCOUNTER 2018-03-26 17:59 | Emergency (ER) | payer BC ==
[~2018-03-26] VITALS: Ht 177.8 cm; Wt 90.7 kg
[~2018-03-26 17:59] MED LIST changes: +FLUC100T7 PO; +OXYC-411 PO; -OXYC1TAB9 PO
[2018-03-26 18:11] VITALS: BP 172/96
[2018-03-26] MEDS ORDERED: HYDROcodone/APAP 5/325MG 1 TAB TABLET PO ONE (18:30)
[2018-03-26] MEDS ORDERED: AMOX500T PO (18:34)
--- NOTE | 2018-03-26 18:35 | PHYS DOC ---
Past Medical History Past Medical History: Hypertension, [place] Additional Past Medical Histor: genital herpes, CHRONIC BACK PAIN Past Surgical History: Other Additional Past Surgical Histo: rt knee surgery, rt chest nipple surgery, TESTICULAR SURGERY Alcohol Use: None Drug Use: None Adult General Chief Complaint Chief Complaint: DENTAL PROBLEM HPI HPI Patient is a 47 year old male who presents with pain to his right upper jaw that he states started this morning. The patient does not have a dentist. He states he took ibuprofen but has had no pain relief from the ibuprofen. He denies fever, nausea or vomiting. Review of Systems Review of Systems Constitutional: Denies fever or chills [] Eyes: Denies change in visual acuity, redness, or eye pain [] HENT: See history of present illness Respiratory: Denies cough or shortness of breath [] Cardiovascular: No additional information not addressed in HPI [] Neurologic: Denies headache, focal weakness or sensory changes [] Endocrine: Denies polyuria or polydipsia [] All other systems were reviewed and found to be within normal limits, except as documented in this note. Allergies Allergies Allergies Coded Allergies Type Severity Reaction Last Updated Verified aspirin Allergy Intermediate rash 03/14/14 Yes Physical Exam Physical Exam Constitutional: Well developed, well nourished, no acute distress, non-toxic appearance. [] HENT: Normocephalic, atraumatic, tooth #16 has a fracture no erythema or edema noted to the gumline, oropharynx moist, no oral exudates, nose normal. [] Eyes: PERRLA, EOMI, conjunctiva normal, no discharge. [] Neck: Normal range of motion, no tenderness, supple, no stridor. [] Cardiovascular:Heart rate regular rhythm, no murmur [] Lungs & Thorax: Bilateral breath sounds clear to auscultation [] Neurologic: Alert and oriented X 3, normal motor function, normal sensory function, no focal deficits noted. [] Psychologic: Affect normal, judgement normal, mood normal. [] Current Patient Data Vital Signs Vital Signs Date Time Temp Pulse Resp B/P (MAP) Pulse Ox O2 Delivery O2 Flow Rate FiO2 03/26/18 18:11 98.8 95 16 172/96 (121) 98 Room Air 98.8 EKG EKG [] Radiology/Procedures Radiology/Procedures [] Course & Med Decision Making Course & Med Decision Making Pertinent Labs and Imaging studies reviewed. (See chart for details) The patient was given 1 dose of [place] in the emergency department. Dragon Disclaimer Dragon Disclaimer This electronic medical record was generated, in whole or in part, using a voice recognition dictation system. Departure Departure Impression: Primary Impression: Pain, dental Disposition: HOME, SELF-CARE Condition: STABLE Referrals: NO PCP (PCP) Patient Instructions: Dental Caries, Dental Pain Additional Instructions: Take the antibiotic as directed. Follow-up with a dentist at an earliest available appointment for treatment of your broken tooth. You may take ibuprofen and Tylenol for pain. Return to the emergency department if worsening. Scripts Amoxicillin (AMOXICILLIN) 500 Mg Tablet 2 TAB PO BID, #40 TAB Prov: JUSTINA HERRMANN APRN 03/26/18 JUSTINA HERRMANN APRN Mar 26, 2018 18:35
[2018-03-26] MEDS ORDERED: HYDR-971 PO (21:53)
[2018-03-26] MEDS ORDERED: PRED20TA PO (21:53)
[2018-03-26] MEDS ORDERED: CHLO15MO2 PO (21:53)
== END 2018-03-26 18:53 | disposition home or self-care (01) ==
LOC: ER 17:59
DX: K08.89 Other specified disorders of teeth and supporting structures (principal); I10 Essential (primary) hypertension; I25.2 Old myocardial infarction; G89.29 Other chronic pain; Z88.6 Allergy status to analgesic agent
CPT/HCPCS: 99283

== ENCOUNTER 2018-03-26 20:26 | Emergency (ER) | payer BC ==
[~2018-03-26] VITALS: Ht 177.8 cm; Wt 90.7 kg
[~2018-03-26 20:26] MED LIST changes: +AMOX500T PO
[2018-03-26 20:28] VITALS: BP 180/99
[2018-03-26] MEDS ORDERED: BUPIVACAINE-EPI 0.5%-1:200000 50 ML VIAL. INJ ONE (21:30)
[2018-03-26] MEDS ORDERED: BUPIVAC MPF-EPI 0.5%-1:200000 30 ML VIAL. INJ ONE (21:30)
[2018-03-26] MEDS ORDERED: DEXAMETHASONE 4 MG TABLET PO ONE (21:30)
[2018-03-26] MEDS ORDERED: CHLO15MO2 PO (21:53)
[2018-03-26] MEDS ORDERED: HYDR-971 PO (21:53)
[2018-03-26] MEDS ORDERED: PRED20TA PO (21:53)
--- NOTE | 2018-03-26 21:53 | PHYS DOC ---
Past Medical History Past Medical History: Hypertension, [place] Additional Past Medical Histor: genital herpes, CHRONIC BACK PAIN Past Surgical History: Other Additional Past Surgical Histo: rt knee surgery, rt chest nipple surgery, TESTICULAR SURGERY Alcohol Use: None Drug Use: None Adult General Chief Complaint Chief Complaint: DENTAL PROBLEM HPI HPI 47-year-old male presents with several day history of dental pain to left maxillary molar. Patient reports known poor dentition and dental caries. Patient reports his had several teeth extracted due to dental caries and infection. Patient seen earlier today for same and started on antibiotics. Patient reports he was given some hydrocodone in the department but was not prescribed any medication for home. Patient reports pain returned and therefore patient presented again for evaluation. Denies fever or chills. Review of Systems Review of Systems Constitutional: Denies fever or chills [] HENT: Reports dentalgia and dental caries Integument: Denies rash or skin lesions [] Neurologic: Denies headache, sensory changes [] Complete systems were reviewed and found to be within normal limits, except as documented in this note. Current Medications Current Medications Current Medications Medications (Trade) Dose Ordered Sig/Kylah Start Time Stop Time Status Last Admin Dose Admin Bupivacaine HCl/ Epinephrine Bitart (Marcaine-Epi 0.5%-1:[id number]) 30 ml 1X ONCE 03/26/18 21:30 03/26/18 21:31 DC 03/26/18 21:17 30 ML Bupivacaine HCl/ Epinephrine Bitart (Sensorcain-Mpf Epi 0.5%-1:[id number]) 30 ml 1X ONCE 03/26/18 21:30 03/26/18 21:30 DC Dexamethasone (Decadron) 10 mg 1X ONCE 03/26/18 21:30 03/26/18 21:31 DC 03/26/18 21:17 10 MG Allergies Allergies Allergies Coded Allergies Type Severity Reaction Last Updated Verified aspirin Allergy Intermediate rash 03/14/14 Yes Physical Exam Physical Exam Constitutional: Well developed, well nourished, no acute distress, non-toxic appearance. [] HENT: Normocephalic, atraumatic, bilateral external ears normal, oropharynx moist, no oral exudates, nose normal. [] Eyes: PERRLA, EOMI, conjunctiva normal, no discharge. [] Neck: Normal range of motion, no tenderness, supple, no stridor. [] Cardiovascular:Heart rate regular rhythm, no murmur [] Lungs & Thorax: Bilateral breath sounds clear to auscultation [] Abdomen: Bowel sounds normal, soft, no tenderness, no masses, no pulsatile masses. [] Skin: Warm, dry, no erythema, no rash. [] Back: No tenderness, no CVA tenderness. [] Extremities: No tenderness, no cyanosis, no clubbing, ROM intact, no edema. [] Neurologic: Alert and oriented X 3, normal motor function, normal sensory function, no focal deficits noted. [] Psychologic: Affect normal, judgement normal, mood normal. [] Current Patient Data Vital Signs Vital Signs Date Time Temp Pulse Resp B/P (MAP) Pulse Ox O2 Delivery O2 Flow Rate FiO2 03/26/18 20:28 98.6 84 16 180/99 (126) 100 Room Air 98.6 EKG EKG [] Radiology/Procedures Radiology/Procedures [] Course & Med Decision Making Course & Med Decision Making Patient presents with acute dentalgia with known dental caries. Patient previously seen for same and started on antibiotics. Patient reports pain not well controlled. Oral steroid provided. Dental block given. Patient advised to continue antibiotics. Additional prescriptions for [place] 12/3255 tablets, prednisone, and Peridex provided.Patient stable for discharge with outpatient follow-up with PCP/ dentist. Discussed findings and plan with patient and family , who acknowledge understanding and agreement. Dragon Disclaimer Dragon Disclaimer This electronic medical record was generated, in whole or in part, using a voice recognition dictation system. Departure Departure Impression: Primary Impression: Dentalgia Additional Impression: Dental caries Disposition: 01 HOME, SELF-CARE Condition: STABLE Referrals: NO PCP (PCP) Patient Instructions: Dental Caries, Toothache-Brief Additional Instructions: Please continue your antibiotics as previously prescribed. Scripts Hydrocodone/Apap 5-325 (NORCO 5-325 TABLET) 1 Each Tablet 1 TAB PO PRN Q6HRS PRN for PAIN, #6 TAB 0 Refills Prov: JAMIE MOYA DO 03/26/18 Prednisone (PREDNISONE) 20 Mg Tablet 2 TAB PO DAILY, #10 TAB Prov: JAMIE MOYA DO 03/26/18 Chlorhexidine Gluconate (PERIDEX) 15 Ml Mouthwash 15 ML PO BID, #946 ML 7 Refills Prov: JAMIE MOYA DO 8/17/18 Additional Procedures Progress Dental Block: Verbal consent obtained. Timeout performed. Dental block to superior posterior nerve block on left performed with 0.5% bupivacaine with epi x 5 mls via 25g needle. Patient tolerated procedure well and without difficulty. Patient reports interval improvement of symptoms. Problem Qualifiers JAMIE MOYA DO Mar 26, 2018 21:53
== END 2018-03-26 21:58 | disposition home or self-care (01) ==
LOC: ER 20:26
DX: K02.9 Dental caries, unspecified (principal); I10 Essential (primary) hypertension; I25.2 Old myocardial infarction; Z88.6 Allergy status to analgesic agent
CPT/HCPCS: 64400; 99284; J8540; 64450

== ENCOUNTER 2018-05-21 17:13 | Emergency (ER) | payer BC ==
[~2018-05-21] VITALS: Ht 177.8 cm; Wt 90.7 kg
[~2018-05-21 17:13] MED LIST changes: +CHLO15MO2 PO; +PRED20TA PO
[2018-05-21 17:22] VITALS: BP 172/91
--- NOTE | 2018-05-21 18:48 | RAD ---
EXAM: Scrotal sonogram with Doppler. HISTORY: Scrotal tenderness. Skin thickening. COMPARISON: None. FINDINGS: Grayscale and Doppler analysis of the scrotum and contents was performed. There is diffuse scrotal skin thickening. This results in some shadowing, limiting visualization. There is no hydrocele bilaterally. The right testicle measures 3.3 x 2.5 x 1.7 cm. The parenchyma is mildly heterogeneous without focal lesions. Internal flow appears normal. The epididymis there is no focal lesions. Internal flow appears normal. The pampiniform plexus augments with Valsalva. No clear venous radicals greater than 2 mm are identified. The left testicle measures 3.7 x 2.5 x 1.3 cm. The parenchyma is mildly heterogeneous without focal lesions. Internal flow appears normal. The left epididymis is not well-visualized but no lesions or abnormal flow is seen. The pampiniform plexus augments with Valsalva. At least one radical measuring 3 mm is noted. IMPRESSION: 1. Scrotal skin thickening limits evaluation. Correlate for cellulitis or other causes of skin edema/thickening. 2. Small left varicocele. The right pampiniform plexus also augments on Valsalva without clear venous dilatation. 3. Mild testicular parenchymal heterogeneity suggests parenchymal atrophy. Electronically signed by: Kurt Stanton MD (05/21/2018 6:45 PM) [facility]
--- NOTE | 2018-05-21 18:54 | PHYS DOC ---
Past Medical History Past Medical History: Hypertension, [place] Additional Past Medical Histor: genital herpes, CHRONIC BACK PAIN Past Surgical History: Other Additional Past Surgical Histo: rt knee surgery, rt chest nipple surgery, TESTICULAR SURGERY Alcohol Use: None Drug Use: None Adult General Chief Complaint Chief Complaint: OTHER COMPLAINTS HPI HPI Patient is a 48 year old AA male who presents to the ER with complaints of testicle pain bilaterally and itching. Pt states he has herpes and takes 1000 mg of valtrex daily. He denies any drainage, injury, redness, or swelling of his testicles. Patient states this has been going on for weeks. Review of Systems Review of Systems Constitutional: Denies fever or chills [] GI: Denies abdominal pain, nausea, vomiting, or diarrhea [] : Denies dysuria or hematuria; reports testicular pain and itching with herpes outbreak ] Integument: Denies rash or skin lesions [] Neurologic: Denies headache, focal weakness or sensory changes [] All other systems were reviewed and found to be within normal limits, except as documented in this note. Allergies Allergies Allergies Coded Allergies Type Severity Reaction Last Updated Verified aspirin Allergy Intermediate rash 03/14/14 Yes Physical Exam Physical Exam Constitutional: Well developed, well nourished, no acute distress, non-toxic appearance. [] HENT: Normocephalic, atraumatic, bilateral external ears normal, nose normal. [ ] Eyes: conjunctiva normal, no discharge. [] : Healing ulcerations noted to shaft of penis, no open lesionsl pt has dry thick skin noted to scrotum reports tenderness with palpation of scrotum bilat, no swelling Skin: Warm, dry, no erythema, no rash. [] Neurologic: Alert and oriented X 3, normal motor function, normal sensory function, no focal deficits noted. [] Psychologic: Affect normal, judgement normal, mood normal. [] Current Patient Data Vital Signs Vital Signs Date Time Temp Pulse Resp B/P (MAP) Pulse Ox O2 Delivery O2 Flow Rate FiO2 05/21/18 17:22 97.6 86 20 172/91 (118) 100 Room Air 97.6 EKG EKG [] Radiology/Procedures Radiology/Procedures PROCEDURE: TESTICULAR/SCROTUM EXAM: Scrotal sonogram with Doppler. HISTORY: Scrotal tenderness. Skin thickening. COMPARISON: None. FINDINGS: Grayscale and Doppler analysis of the scrotum and contents was performed. There is diffuse scrotal skin thickening. This results in some shadowing, limiting visualization. There is no hydrocele bilaterally. The right testicle measures 3.3 x 2.5 x 1.7 cm. The parenchyma is mildly heterogeneous without focal lesions. Internal flow appears normal. The epididymis there is no focal lesions. Internal flow appears normal. The pampiniform plexus augments with Valsalva. No clear venous radicals greater than 2 mm are identified. The left testicle measures 3.7 x 2.5 x 1.3 cm. The parenchyma is mildly heterogeneous without focal lesions. Internal flow appears normal. The left epididymis is not well-visualized but no lesions or abnormal flow is seen. The pampiniform plexus augments with Valsalva. At least one radical measuring 3 mm is noted. IMPRESSION: 1. Scrotal skin thickening limits evaluation. Correlate for cellulitis or other causes of skin edema/thickening. 2. Small left varicocele. The right pampiniform plexus also augments on Valsalva without clear venous dilatation. 3. Mild testicular parenchymal heterogeneity suggests parenchymal atrophy.[] Course & Med Decision Making Course & Med Decision Making Pertinent Labs and Imaging studies reviewed. (See chart for details) 1845- Pt is no longer in the room. he has eloped. Tried to contact patient via phone and none of his contact numbers are in service. Dx: scrotal thickening, scrotal eczema Patient left prior to discharge instructions. [] Dragon Disclaimer Dragon Disclaimer This electronic medical record was generated, in whole or in part, using a voice recognition dictation system. Departure Departure Impression: Primary Impression: Eloped from emergency department Disposition: 01 HOME, SELF-CARE Condition: STABLE Referrals: NO PCP (PCP) ESPERANZA MENDOZA [employer] May 21, 2018 18:54
[2018-05-21] MEDS ORDERED: HYDROcodone/APAP 5/325MG 1 TAB TABLET PO ONE (19:30)
== END 2018-05-21 19:15 | disposition home or self-care (01) ==
LOC: ER 17:13
DX: N48.5 Ulcer of penis (principal); N50.812 Left testicular pain; N50.811 Right testicular pain; I86.1 Scrotal varices; I10 Essential (primary) hypertension; I25.2 Old myocardial infarction; G89.29 Other chronic pain; Z88.6 Allergy status to analgesic agent
CPT/HCPCS: 76870; 99281; 99284

== ENCOUNTER 2018-05-22 12:14 | Emergency (ER) | payer BC ==
[~2018-05-22] VITALS: Ht 177.8 cm; Wt 86.2 kg
[2018-05-22 12:21] VITALS: BP 175/85
--- NOTE | 2018-05-22 13:25 | PHYS DOC ---
Past Medical History Past Medical History: Hypertension, [place] Additional Past Medical Histor: genital herpes, CHRONIC BACK PAIN Past Surgical History: Other Additional Past Surgical Histo: rt knee surgery, rt chest nipple surgery, TESTICULAR SURGERY Alcohol Use: None Drug Use: None Adult General Chief Complaint Chief Complaint: OTHER COMPLAINTS HPI HPI Patient is a 48 year old male who presents with unresolving herpes. The patient has only been taking half of his dosages valacyclovir. He states that the infection was not clearing. He states that he is having pain with the lesions. He denies fever or penile discharge. Review of Systems Review of Systems Constitutional: Denies fever or chills [] Eyes: Denies change in visual acuity, redness, or eye pain [] HENT: Denies nasal congestion or sore throat [] Respiratory: Denies cough or shortness of breath [] Cardiovascular: No additional information not addressed in HPI [] GI: Denies abdominal pain, nausea, vomiting, bloody stools or diarrhea [] : See history of present illness Musculoskeletal: Denies back pain or joint pain [] Integument: Denies rash or skin lesions [] Neurologic: Denies headache, focal weakness or sensory changes [] Endocrine: Denies polyuria or polydipsia [] All other systems were reviewed and found to be within normal limits, except as documented in this note. Current Medications Current Medications Current Medications Medications (Trade) Dose Ordered Sig/Kylah Start Time Stop Time Status Last Admin Dose Admin Acetaminophen/ Hydrocodone Bitart (Lortab 5/325) 1 tab 1X ONCE 05/22/18 13:30 05/22/18 13:31 DC 05/22/18 13:30 1 TAB Allergies Allergies Allergies Coded Allergies Type Severity Reaction Last Updated Verified aspirin Allergy Intermediate rash 03/14/14 Yes Physical Exam Physical Exam Constitutional: Well developed, well nourished, no acute distress, non-toxic appearance. [] Cardiovascular:Heart rate regular rhythm, no murmur [] Lungs & Thorax: Bilateral breath sounds clear to auscultation [] Abdomen: Bowel sounds normal, soft, no tenderness, no masses, no pulsatile masses. [] Skin: Warm, dry, no erythema, no rash : The patient has scattered vesicles to his penis and scrotum with thickening of the skin Back: No tenderness, no CVA tenderness. [] Extremities: No tenderness, no cyanosis, no clubbing, ROM intact, no edema. [] Neurologic: Alert and oriented X 3, normal motor function, normal sensory function, no focal deficits noted. [] Psychologic: Affect normal, judgement normal, mood normal. [] Current Patient Data Vital Signs Vital Signs Date Time Temp Pulse Resp B/P (MAP) Pulse Ox O2 Delivery O2 Flow Rate FiO2 05/22/18 13:30 16 97 Room Air 05/22/18 12:21 97.9 86 175/85 (115) 97.9 EKG EKG [] Radiology/Procedures Radiology/Procedures [] Course & Med Decision Making Course & Med Decision Making Pertinent Labs and Imaging studies reviewed. (See chart for details) []A patient is to take his full dose of valacyclovir and follow-up with urology for a recheck. The patient is in agreement with this plan. He was given a dose of pain medication in the emergency department. Dragon Disclaimer Dragon Disclaimer This electronic medical record was generated, in whole or in part, using a voice recognition dictation system. Departure Departure Impression: Primary Impression: Herpes genitalia Disposition: 01 HOME, SELF-CARE Condition: STABLE Referrals: NO PCP (PCP) HONEY TURNER MD Patient Instructions: Genital Herpes Additional Instructions: Continue to take your medication as directed. The proper dosage should be 1 pill twice a day. Follow-up with urology for a recheck within the week. JUSTINA HERRMANN APRN May 22, 2018 13:25
[2018-05-22] MEDS ORDERED: HYDROcodone/APAP 5/325MG 1 TAB TABLET PO ONE (13:30)
== END 2018-05-22 13:48 | disposition home or self-care (01) ==
LOC: ER 12:14
DX: A60.02 Herpesviral infection of other male genital organs (principal); I10 Essential (primary) hypertension; I25.2 Old myocardial infarction; G89.29 Other chronic pain; Z88.6 Allergy status to analgesic agent
CPT/HCPCS: 99282

== ENCOUNTER 2018-12-10 12:07 | Emergency (ER) | payer BC, SELFPAY ==
[~2018-12-10] VITALS: Ht 177.8 cm; Wt 86.2 kg
[~2018-12-10 12:07] MED LIST changes: +HYDR-2145 PO; +HYDR-3164 PO; -HYDR-971 PO; -HYDR25TA9 PO; -OXYC-323 PO; +OXYC1TAB15 PO
[2018-12-10 12:17] VITALS: BP 160/104
--- NOTE | 2018-12-10 12:30 | PHYS DOC ---
Past Medical History Past Medical History: Hypertension, [place] Additional Past Medical Histor: genital herpes, CHRONIC BACK PAIN Past Surgical History: Other Additional Past Surgical Histo: rt knee surgery, rt chest nipple surgery, TESTICULAR SURGERY Alcohol Use: None Drug Use: None Adult General Chief Complaint Chief Complaint: SHOULDER INJURY [facility] Patient is a 48-year-old male who presents with complaint of left shoulder pain that started about a week ago. He denies any recent injuries. Patient states the pain is worsened with movement of the shoulder particularly in flexion and abduction. He rates pain an 8 out of 10. He denies any chest pain or shortness of breath. He states that nothing improves the pain. Review of Systems Review of Systems Constitutional: Denies fever or chills [] Respiratory: Denies cough or shortness of breath [] Cardiovascular: No additional information not addressed in [facility] [] Musculoskeletal: Positive left shoulder pain [] Integument: Denies rash or skin lesions [] Allergies Allergies Allergies Coded Allergies Type Severity Reaction Last Updated Verified aspirin Allergy Intermediate rash 03/14/14 Yes Physical Exam Physical Exam Constitutional: Well developed, well nourished, no acute distress, non-toxic appearance. [] Cardiovascular:Heart rate regular rhythm, no murmur [] Lungs & Thorax: Bilateral breath sounds clear to auscultation [] Back: No tenderness, no CVA tenderness. [] Extremities: Examination of left shoulder demonstrates tenderness to palpation diffusely. There is no anterior fullness noted on exam. Patient does have some limited in range of motion in flexion and abduction primarily due to pain. [] Neurologic: Alert and oriented X 3, no focal deficits noted. [] Current Patient Data Vital Signs Vital Signs Date Time Temp Pulse Resp B/P (MAP) Pulse Ox O2 Delivery O2 Flow Rate FiO2 12/10/18 12:17 97.9 95 18 160/104 (122) 98 Room Air 97.9 EKG EKG [] Radiology/Procedures Radiology/Procedures [] Impressions: PROCEDURE: SHOULDER 2+V LEFT Examination: 2 views of the left shoulder HISTORY: History of left shoulder pain COMPARISON: None available. Findings: The humerus head is within the glenoid. There is mild degenerative changes identified in the acromioclavicular joint and the glenohumeral joint. IMPRESSION: 1. No acute osseous findings. 2. Mild degenerative changes glenohumeral joint and the acromioclavicular joint. Electronically signed by: Moe Byrd MD (12/10/2018 12:57 PM) [id number] Course & Med Decision Making Course & Med Decision Making Pertinent Labs and Imaging studies reviewed. (See chart for details) [] Dragon Disclaimer Dragon Disclaimer This electronic medical record was generated, in whole or in part, using a voice recognition dictation system. Departure Departure Impression: Primary Impression: Shoulder pain, left Disposition: 01 HOME, SELF-CARE Condition: STABLE Referrals: NO PCP (PCP) Patient Instructions: Shoulder Pain Scripts Indomethacin (INDOMETHACIN) 50 Mg Capsule 1 CAP PO TID PRN for PAIN, #30 CAP Prov: ARIEL SEGOVIA Jr. DO 12/10/18 Problem Qualifiers Primary Impression: Shoulder pain, left Chronicity: unspecified Qualified Codes: M25.512 - Pain in left shoulder ARIEL SEGOVIA Jr. DO December 10, 2018 12:30
--- NOTE | 2018-12-10 13:00 | RAD ---
Examination: 2 views of the left shoulder HISTORY: History of left shoulder pain COMPARISON: None available. Findings: The humerus head is within the glenoid. There is mild degenerative changes identified in the acromioclavicular joint and the glenohumeral joint. IMPRESSION: 1. No acute osseous findings. 2. Mild degenerative changes glenohumeral joint and the acromioclavicular joint. Electronically signed by: Moe Byrd MD (12/10/2018 12:57 PM) [facility]
[2018-12-10] MEDS ORDERED: INDO50CA5 PO (13:10)
== END 2018-12-10 13:23 | disposition home or self-care (01) ==
LOC: ER 12:07
DX: M25.512 Pain in left shoulder (principal); I10 Essential (primary) hypertension; I25.2 Old myocardial infarction; Z88.6 Allergy status to analgesic agent
CPT/HCPCS: 73030; 99284

== ENCOUNTER 2019-03-05 20:02 | Emergency (ER) | payer SELFPAY ==
[~2019-03-05] VITALS: Ht 177.8 cm; Wt 86.2 kg
[~2019-03-05 20:02] MED LIST changes: +INDO50CA5 PO
[2019-03-05 20:09] VITALS: BP 149/100
[2019-03-05] MEDS ORDERED: HYDR-3164 PO (20:21)
[2019-03-05] MEDS ORDERED: CHLO15MO2 PO (20:21)
[2019-03-05] MEDS ORDERED: PENI500T PO (20:21)
--- NOTE | 2019-03-05 20:21 | PHYS DOC ---
Past Medical History Past Medical History: Hypertension, [place] Additional Past Medical Histor: genital herpes, CHRONIC BACK PAIN Past Surgical History: Other Additional Past Surgical Histo: rt knee surgery, rt chest nipple surgery, TESTICULAR SURGERY Alcohol Use: None Drug Use: None Adult General Chief Complaint Chief Complaint: DENTAL PROBLEM HPI HPI 48-year-old male presents to ER via POV for complaints of left lower dental pain and gum swelling. He reports pain started approximately 4 days ago and both pain and swelling has been increasing. He denies nausea or vomiting. He denies headache, dizziness, or throat pain/swelling. He reports he has been taking [id number] Benadryl and ibuprofen with minimal relief in symptoms. Patient denies fever. Pt is a daily smoker. Review of Systems Review of Systems Constitutional: Denies fever or chills [] Eyes: Denies change in visual acuity, redness, or eye pain [] HENT: Denies nasal congestion or sore throat [] Respiratory: Denies cough or shortness of breath [] Cardiovascular: No additional information not addressed in HPI [] GI: Denies abdominal pain, nausea, vomiting, bloody stools or diarrhea [] : Denies dysuria or hematuria [] Musculoskeletal: Denies back pain or joint pain [] Integument: Denies rash or skin lesions [] Neurologic: Denies headache, focal weakness or sensory changes [] Endocrine: Denies polyuria or polydipsia [] All other systems were reviewed and found to be within normal limits, except as documented in this note. Current Medications Current Medications Current Medications Medications (Trade) Dose Ordered Sig/Kylah Start Time Stop Time Status Last Admin Dose Admin Acetaminophen/ Hydrocodone Bitart (Lortab 5/325) 1 tab 1X ONCE 03/05/19 20:15 03/05/19 20:16 UNV Penicillin V Potassium (Veetid) 500 mg 1X ONCE 03/05/19 20:15 03/05/19 20:16 UNV Allergies Allergies Allergies Coded Allergies Type Severity Reaction Last Updated Verified aspirin Allergy Intermediate rash 03/14/14 Yes Physical Exam Physical Exam Constitutional: Well developed, well nourished, no acute distress, non-toxic appearance. [] HENT: Normocephalic, atraumatic, bilateral external ears normal, oropharynx moist, no oral exudates, nose normal. [] Eyes: PERRLA, EOMI, conjunctiva normal, no discharge. [] Neck: Normal range of motion, no tenderness, supple, no stridor. [] Cardiovascular:Heart rate regular rhythm, no murmur [] Lungs & Thorax: Bilateral breath sounds clear to auscultation [] Abdomen: Bowel sounds normal, soft, no tenderness, no masses, no pulsatile masses. [] Skin: Warm, dry, no erythema, no rash. [] Back: No tenderness, no CVA tenderness. [] Extremities: No tenderness, no cyanosis, no clubbing, ROM intact, no edema. [] Neurologic: Alert and oriented X 3, normal motor function, normal sensory function, no focal deficits noted. [] Psychologic: Affect normal, judgement normal, mood normal. [] Current Patient Data Vital Signs Vital Signs Date Time Temp Pulse Resp B/P (MAP) Pulse Ox O2 Delivery O2 Flow Rate FiO2 03/05/19 20:09 98.1 110 18 149/100 (116) 96 Room Air 98.1 EKG EKG [] Radiology/Procedures Radiology/Procedures [] Course & Med Decision Making Course & Med Decision Making Pertinent Labs and Imaging studies reviewed. (See chart for details) [] Dragon Disclaimer Dragon Disclaimer This electronic medical record was generated, in whole or in part, using a voice recognition dictation system. Departure Departure Impression: Primary Impression: Dental caries Disposition: 01 HOME, SELF-CARE Condition: STABLE Referrals: NO PCP (PCP) Patient Instructions: Dental Caries, Smoking Cessation Additional Instructions: Avoid smoking. Drink plenty of fluids daily. Tylenol and/or ibuprofen as needed for pain as directed on container. If taking prescribed [place] avoid extra Tylenol intake. You need to be seen by a dentist as soon as possible call and schedule an appointment. Scripts Penicillin V Potassium (PENICILLIN V POTASSIUM) 500 Mg Tablet 1 TAB PO TID, #30 TAB 0 Refills Prov: KECIA HORNE APRN 03/05/19 Chlorhexidine Gluconate (PERIDEX) 15 Ml Mouthwash 15-30 ML PO TID PRN for PAIN, #473 ML 0 Refills Prov: KECIA HORNE APRN 03/05/19 Hydrocodone/Apap 5-325 (NORCO 5-325 TABLET) 1 Each Tablet 1 TAB PO PRN Q6HRS PRN for PAIN, #12 TAB 0 Refills Avoid drinking alcohol or driving while taking this medication Prov: KECIA HORNE APRN 03/05/19 KECIA HORNE APRN Mar 05, 2019 20:21
[2019-03-05] MEDS ORDERED: HYDROcodone/APAP 5/325MG 1 TAB TABLET PO ONE (20:30)
[2019-03-05] MEDS ORDERED: PENICILLIN V K 250 MG TABLET. PO ONE (20:30)
== END 2019-03-05 20:27 | disposition home or self-care (01) ==
LOC: ER 20:02
DX: K02.9 Dental caries, unspecified (principal); I10 Essential (primary) hypertension; I25.2 Old myocardial infarction; G89.29 Other chronic pain; F17.200 Nicotine dependence, unspecified, uncomplicated; Z88.6 Allergy status to analgesic agent
CPT/HCPCS: 99283

== ENCOUNTER 2019-05-25 11:42 | Emergency (ER) | payer SELFPAY ==
[~2019-05-25] VITALS: Ht 177.8 cm; Wt 86.2 kg
[~2019-05-25 11:42] MED LIST changes: +INDO50CA15 PO; -INDO50CA5 PO; +PENI500T PO
[2019-05-25] MEDS ORDERED: CLOB15CR TP (12:13)
[2019-05-25] MEDS ORDERED: HYDR-3164 PO (12:13)
--- NOTE | 2019-05-25 12:13 | PHYS DOC ---
Past Medical History Past Medical History: Hypertension, [place] Additional Past Medical Histor: genital herpes, CHRONIC BACK PAIN Past Surgical History: Other Additional Past Surgical Histo: rt knee surgery, rt chest nipple surgery, TESTICULAR SURGERY Alcohol Use: None Drug Use: None Adult General Chief Complaint Chief Complaint: SEXUALLY TRANSMITTED DISEASE HPI HPI Patient is a 49 year old male with a chronic history of herpes genitalia, hypertension and [place], presents to the ED today complaining of a flareup of herpes. Patient denies any fever. He states he just started taking acyclovir but the pain is unbearable. Review of Systems Review of Systems Constitutional: Denies fever or chills [] Musculoskeletal: Denies back pain or joint pain [] Integument: Reports herpes flareup. Neurologic: Denies headache, focal weakness or sensory changes [] All other systems were reviewed and found to be within normal limits, except as documented in this note. Allergies Allergies Allergies Coded Allergies Type Severity Reaction Last Updated Verified aspirin Allergy Intermediate rash 03/14/14 Yes Physical Exam Physical Exam Constitutional: Well developed, well nourished, no acute distress, non-toxic ap pearance. [] Skin: Warm, dry, no erythema, no rash. [] Male exam, external genitalia noted for excoriated herpes lesion on the testicles all the way to the exterior rectal region. Right breast nipple isn't enlarged and appears to have similar lesions. Back: No tenderness, no CVA tenderness. [] Extremities: No tenderness, no cyanosis, no clubbing, ROM intact, no edema. [] Neurologic: Alert and oriented X 3, normal motor function, normal sensory function, no focal deficits noted. [] Psychologic: Affect normal, judgement normal, mood normal. [] EKG EKG [] Radiology/Procedures Radiology/Procedures [] Course & Med Decision Making Course & Med Decision Making Pertinent Labs and Imaging studies reviewed. (See chart for details) This is a 49-year-old male patient presenting to the ED today with a herpes flareup. He appears to also have an enlarged right nipple similar with similar lesions to his scrotal region rash. I spoke to patient about this lesion on the right breast and requested him to follow-up with a specialist to have it biopsied just to make sure it's nothing cancerous. He states is an appointment with a specialist on Thursday for possible biopsy. He is on acyclovir. He is re questing clobetasol. Rx given and pain medicines and d/c to home. Encouraged to continue taking his acyclovir. Margarita Disclaimer Margarita Disclaimer This electronic medical record was generated, in whole or in part, using a voice recognition dictation system. Departure Departure Impression: Primary Impression: Herpes genitalia Additional Impression: Nipple lesion Disposition: HOME, SELF-CARE Condition: STABLE Referrals: NO PCP (PCP) follow up with your specialist as soon as you can Patient Instructions: Genital Herpes Additional Instructions: Please follow-up with a specialist for the lesions on your right breast. Please continue taking acyclovir and using the rest of the prescribed medications. Scripts Hydrocodone/Apap 5-325 (NORCO 5-325 TABLET) 1 Each Tablet 1-2 TAB PO Q4-6HRS, #20 TAB Prov: ELIEZER MANZANO APRN 05/25/19 Clobetasol Propionate (CLOBETASOL PROPIONATE) 15 Gm Cream..g. 1 IRAIS TP BID, #30 GM 3 Refills Prov: ELIEZER MANZANO APRN 05/25/19 Problem Qualifiers Primary Impression: Herpes genitalia Herpes simplex infection site: penis Qualified Codes: A60.01 - Herpesviral infection of penis ELIEZER MANZANO APRN May 25, 2019 12:13
[2019-05-25 12:33] VITALS: BP 174/93
== END 2019-05-25 12:37 | disposition home or self-care (01) ==
LOC: ER 11:42
DX: A60.01 Herpesviral infection of penis (principal); N64.89 Other specified disorders of breast; I10 Essential (primary) hypertension; G89.29 Other chronic pain; Z98.890 Other specified postprocedural states; Z88.6 Allergy status to analgesic agent; I25.2 Old myocardial infarction
CPT/HCPCS: 99283

== ENCOUNTER 2019-07-08 09:00 | Emergency (ER) | payer SELFPAY ==
[~2019-07-08] VITALS: Ht 177.8 cm; Wt 86.2 kg
[~2019-07-08 09:00] MED LIST changes: +CLOB15CR TP
[2019-07-08 09:15] VITALS: BP 168/98
[2019-07-08] MEDS ORDERED: CLIN300C8 PO (10:00)
--- NOTE | 2019-07-08 10:01 | PHYS DOC ---
Past Medical History Past Medical History: Hypertension, [place] Additional Past Medical Histor: genital herpes, CHRONIC BACK PAIN Past Surgical History: Other Additional Past Surgical Histo: rt knee surgery, rt chest nipple surgery, TESTICULAR SURGERY Alcohol Use: None Drug Use: None Adult General Chief Complaint Chief Complaint: SEXUALLY TRANSMITTED DISEASE HPI HPI 49-year-old male presents to the emergency department with complaints of herpetic outbreak. Patient was diagnosed approximately 9 years ago states he's been taking Valtrex as well as acyclovir started naproxen 7 days ago however has had worsening pain in his groin. Fever on examination. He complains of pain in his testicles as well as to his rectum. Patient denies any chest pain, shortness breath, nausea, vomiting. Nothing makes his symptoms worse, nothing makes his symptoms better. Review of Systems Review of Systems Constitutional: Denies fever or chills [] Eyes: Denies change in visual acuity, redness, or eye pain [] HENT: Denies nasal congestion or sore throat [] Respiratory: Denies cough or shortness of breath [] Cardiovascular: No additional information not addressed in HPI [] GI: Denies abdominal pain, nausea, vomiting, bloody stools or diarrhea [] : Denies dysuria or hematuria [] Musculoskeletal: Denies back pain or joint pain [] Integument: rash, herpetic lesions appreciated to rectum/testicles Neurologic: Denies headache, focal weakness or sensory changes [] All other systems were reviewed and found to be within normal limits, except as documented in this note. Allergies Allergies Allergies Coded Allergies Type Severity Reaction Last Updated Verified aspirin Allergy Intermediate rash 03/14/14 Yes Physical Exam Physical Exam Constitutional: Well developed, well nourished, no acute distress, non-toxic appearance. [] HENT: Normocephalic, atraumatic, bilateral external ears normal, oropharynx moist, no oral exudates, nose normal. [] Eyes: PERRLA, EOMI, conjunctiva normal, no discharge. [] Cardiovascular:Heart rate regular rhythm, no murmur [] Lungs & Thorax: Bilateral breath sounds clear to auscultation [] Abdomen: Bowel sounds normal, soft, no tenderness, no masses, no pulsatile masses. [] Skin: Warm, dry, irritation appreciated to testicles/perineal area Back: No tenderness, no CVA tenderness. [] Extremities: No tenderness, no edema. [] Neurologic: Alert and oriented X 3, no focal deficits noted. [] Psychologic: Affect normal, judgement normal, mood normal. [] Current Patient Data Vital Signs Vital Signs Date Time Temp Pulse Resp B/P (MAP) Pulse Ox O2 Delivery O2 Flow Rate FiO2 07/08/19 09:15 97.6 92 16 168/98 (121) 99 Room Air 97.6 EKG EKG [] Radiology/Procedures Radiology/Procedures [] Course & Med Decision Making Course & Med Decision Making Pertinent Labs and Imaging studies reviewed. (See chart for details) []49-year-old male presents to the emergency department with complaints of herpetic outbreak. Patient was diagnosed approximately 9 years ago states he's been taking Valtrex as well as acyclovir started naproxen 7 days ago however has had worsening pain in his groin. Fever on examination. He complains of pain in his testicles as well as to his rectum. Patient denies any chest pain, shortness breath, nausea, vomiting. Nothing makes his symptoms worse, nothing makes his symptoms better. [place]/Toradol IM Recommend continuing po abx upon discharge for cellulitis infection Dragon Disclaimer Dragon Disclaimer This electronic medical record was generated, in whole or in part, using a voice recognition dictation system. Departure Departure Impression: Primary Impression: Herpes genitalia Additional Impression: Cellulitis Disposition: 01 HOME, SELF-CARE Condition: STABLE Referrals: NO PCP (PCP) Patient Instructions: Cellulitis, [id number]-op-[id number], Genital Herpes Additional Instructions: Recommend follow up with PCP 3 - 5 days Return to the ER with worsening symptoms, intractable pain, fever, altered mental status Tylenol/Motrin as needed for pain Take antibiotics as directed Continue antivirals as prescribed Scripts Clindamycin Hcl (CLINDAMYCIN HCL) 300 Mg Capsule 300 MG PO QID for 7 Days, #28 CAP Prov: MOIRA BERRY MD 07/08/19 Problem Qualifiers Primary Impression: Herpes genitalia Herpes simplex infection site: unspecified Qualified Codes: A60.00 - Herpesviral infection of urogenital system, unspecified Additional Impression: Cellulitis Site of cellulitis: unspecified site Qualified Codes: L03.90 - Cellulitis, unspecified MOIRA BERRY MD Jul 08, 2019 10:01
[2019-07-08] MEDS ORDERED: KETOROLAC 60 MG/2 ML VIAL. IM ONE (10:15)
[2019-07-17] MEDS ORDERED: AMOX1TAB58 PO (08:16)
[2019-07-17] MEDS ORDERED: OXYC1TAB15 PO (08:16)
== END 2019-07-08 10:37 | disposition home or self-care (01) ==
LOC: ER 09:00
DX: A60.00 Herpesviral infection of urogenital system, unspecified (principal); L03.315 Cellulitis of perineum; Z88.6 Allergy status to analgesic agent; I10 Essential (primary) hypertension; I21.9 Acute myocardial infarction, unspecified; G89.29 Other chronic pain; Z96.651 Presence of right artificial knee joint; Z98.890 Other specified postprocedural states
CPT/HCPCS: 96372; 99283; J1885

== ENCOUNTER 2019-09-12 12:45 | Emergency (ER) | payer SELFPAY ==
[~2019-09-12] VITALS: Ht 177.8 cm; Wt 90.9 kg
[~2019-09-12 12:45] MED LIST changes: +AMOX1TAB58 PO; +CLIN300C8 PO; +IBUP-1007 PO; +OXYC1TAB22 PO; +POLY17PO29 PO; +WITC1MED18 TP
[2019-09-12 13:16] VITALS: BP 158/76
[2019-09-12] MEDS ORDERED: AMOX1TAB61 PO (14:06)
--- NOTE | 2019-09-12 14:06 | PHYS DOC ---
Past Medical History Past Medical History: Hypertension, [place] Additional Past Medical Histor: genital herpes, CHRONIC BACK PAIN Past Surgical History: Other Additional Past Surgical Histo: rt knee surgery, rt chest nipple surgery, TESTICULAR SURGERY Alcohol Use: None Drug Use: None Adult General Chief Complaint Chief Complaint: DENTAL PROBLEM [place] [facility] [employer] HPI Patient is a 49 year old male who presents with dental pain and swelling that has been ongoing for several days. The patient reports that he is having increased pain and swelling to the left jaw. Denies additional complaints. Complete ROS were reviewed and found to be within normal limits, except as documented in the HPI Allergies Allergies Allergies Coded Allergies Type Severity Reaction Last Updated Verified aspirin Allergy Intermediate rash 03/14/14 Yes I S O L A T I O N *CONTACT* Allergy Unknown 07/18/19 Yes Physical Exam Physical Exam Constitutional: Well developed, well nourished, no acute distress, non-toxic appearance. [] HENT: Normocephalic, atraumatic, bilateral external ears normal, oropharynx moist, no oral exudates, patient is missing all teeth with exception of 18. It appears edematous, and erythematous. Eyes: PERRLA, EOMI, conjunctiva normal, no discharge. [] Neck: Normal range of motion, no tenderness, supple, no stridor. [] Skin: Swelling to left side of face. Back: No tenderness, no CVA tenderness. [] Extremities: No tenderness, no cyanosis, no clubbing, ROM intact, no edema. [] Neurologic: Alert and oriented X 3, normal motor function, normal sensory function, no focal deficits noted. [] Psychologic: Affect normal, judgement normal, mood normal. [] Current Patient Data Vital Signs Vital Signs Date Time Temp Pulse Resp B/P (MAP) Pulse Ox O2 Delivery O2 Flow Rate FiO2 09/12/19 13:16 98.4 93 18 158/76 (103) 98 Room Air 98.4 EKG EKG [] Radiology/Procedures Radiology/Procedures [] Course & Med Decision Making Course & Med Decision Making Pertinent Labs and Imaging studies reviewed. (See chart for details) Will place patient on Augmentin and recommend to follow up with Dentist. Margarita Disclaimer Dragon Disclaimer This electronic medical record was generated, in whole or in part, using a voice recognition dictation system. Departure Departure Impression: Primary Impression: Dentalgia Disposition: HOME, SELF-CARE Condition: STABLE Referrals: NO PCP (PCP) Patient Instructions: Dental Caries Additional Instructions: Thank you for visiting [facility]. We appreciate you trusting us with your care. If any additional problems come up don't hesitate to return to visit us. Please follow up with your primary care provider so they can plan additional care if needed and know about the problem that you had. If symptoms worsen come back to the Emergency Department. Any concerning symptoms that start such as chest pain, shortness of air, weakness or numbness on one side of the body, running high fevers or any other concerning symptoms return to the ER. You have been prescribed an antibiotic today to help fight your infection. Please take all of the antibiotic as directed. If after 48 hours the infection is not improving, please return for more care. If the infection worsens, return to ER for additional care. Please follow up with dentist. Scripts Amoxicillin/Potassium Clav (AUGMENTIN 875-125 TABLET) 1 Each Tablet 1 TAB PO BID for 10 Days, #20 TAB 0 Refills Prov: JAMIE BEVERLY APRN 09/12/19 JAMIE BEVERLY APRN Sep 12, 2019 14:06
== END 2019-09-12 14:16 | disposition home or self-care (01) ==
LOC: ER 12:45
DX: K08.89 Other specified disorders of teeth and supporting structures (principal); I10 Essential (primary) hypertension; I25.2 Old myocardial infarction; G89.29 Other chronic pain; Z98.890 Other specified postprocedural states; Z88.6 Allergy status to analgesic agent; Z88.8 Allergy status to other drugs, medicaments and biological substances
CPT/HCPCS: 99283

== ENCOUNTER 2020-04-30 06:58 | Emergency (ER) | payer BC ==
[~2020-04-30] VITALS: Ht 177.8 cm; Wt 86.4 kg
[~2020-04-30 06:58] MED LIST changes: +AMOX1TAB61 PO; -OXYC-411 PO; +OXYC1TAB20 PO
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
[2020-04-30 07:47] LABS: BASO % 0 % (0-3); EOS # 0.1 x10^3/uL (0.0-0.7); EOS % 1 % (0-3); HEMATOCRIT 33.5 % (39.0-53.0); LYMPH % 12 % (24-48); MEAN CORPUSCULAR HEMOGLOBIN 27 pg (25-35); MEAN CORPUSCULAR HGB CONC 33 g/dL (31-37); MEAN CORPUSCULAR VOLUME 82 fL (79-100); MONO # 0.6 x10^3/uL (0.0-1.1); MONO % 7 % (0-9); NEUT # 6.8 x10^3/uL (1.8-7.7); NEUT % 80 % (31-73); PLATELET COUNT 204 x10^3/uL (140-400); RED BLOOD COUNT 4.07 x10^6/uL (4.30-5.70); RED CELL DISTRIBUTION WIDTH 13.9 % (11.5-14.5); WHITE BLOOD COUNT 8.5 x10^3/uL (4.0-11.0)
[2020-04-30 07:48] LABS: CALCIUM 8.4 mg/dL (8.5-10.1); CREATININE 1.2 mg/dL (0.7-1.3); GFR 76.9; POTASSIUM 4.9 mmol/L (3.5-5.1)
[2020-04-30 07:54] LABS: ALBUMIN 3.2 g/dL (3.4-5.0); MAGNESIUM 1.7 mg/dL (1.8-2.4); TOTAL BILIRUBIN 0.2 mg/dL (0.2-1.0); TOTAL PROTEIN 6.5 g/dL (6.4-8.2)
[2020-04-30 08:06] LABS: PROTHROMBIN TIME PATIENT 12.9 SEC (11.7-14.0)
[2020-04-30 08:15] LABS: BILIRUBIN,URINE NEGATIVE (NEG); CLARITY,URINE CLEAR; COLOR,URINE YELLOW; NITRITE,URINE NEGATIVE (NEG); PROTEIN,URINE 100 mg/dL (NEG-TRACE); UROBILINOGEN,URINE 0.2 mg/dL (0.2 mg/dL)
[2020-04-30] MEDS ORDERED: IOHEXOL 300 MG/ML 100ML VIAL. IV ONE (08:15)
[2020-04-30 08:21] LABS: BARBITURATES NEG (NEG); BENZODIAZEPINES NEG (NEG); CANNABINOIDS NEG (NEG); COCAINE NEG (NEG); METHADONE POS (NEG); OPIATES NEG (NEG); PHENCYCLIDINE NEG (NEG)
[2020-04-30 08:22] LABS: AMPHETAMINE/METHAMPHETAMINE NEG (NEG)
[2020-04-30 08:32] LABS: BACTERIA,URINE FEW /HPF (0-FEW); RBC,URINE OCC /HPF (0-2); SQUAMOUS EPITHELIAL CELL,UR FEW /LPF; WBC,URINE OCC /HPF (0-4)
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
[2020-04-30] MEDS ORDERED: MORPHINE SULFATE 4 MG/ML VIAL. IV ONE (09:30)
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
[2020-04-30 10:45] VITALS: BP 185/99
[2020-04-30] MEDS ORDERED: HYDR-3164 PO (11:17)
== END 2020-04-30 11:43 | disposition home or self-care (01) ==
LOC: ER 06:58
DX: S70.02XA Contusion of left hip, initial encounter (principal); S50.02XA Contusion of left elbow, initial encounter; R51 Headache; R07.89 Other chest pain; R10.9 Unspecified abdominal pain; I10 Essential (primary) hypertension; I25.2 Old myocardial infarction; G89.29 Other chronic pain; F17.200 Nicotine dependence, unspecified, uncomplicated; Z88.6 Allergy status to analgesic agent; Z88.8 Allergy status to other drugs, medicaments and biological substances; V09.9XXA Pedestrian injured in unspecified transport accident, initial encounter; Y93.01 Activity, walking, marching and hiking; Y92.488 Other paved roadways as the place of occurrence of the external cause; Y99.8 Other external cause status
CPT/HCPCS: 29125; 36415; 70450; 71260; 72125; 73030; 73080; 73110; 73502; 74177; 80053; 80307; 81001; 83735; 85025; 85610; 85730; 96374; 99285; G0480; J2270; Q9967

== ENCOUNTER 2020-05-03 11:53 | Emergency (ER) | payer BC ==
[~2020-05-03] VITALS: Ht 177.8 cm; Wt 82.7 kg
[2020-05-03 13:02] VITALS: BP 179/87
[2020-05-03] MEDS ORDERED: oxyCODONE/APAP 10/325 1 TAB TABLET PO ONE (13:30)
[2020-05-03] MEDS ORDERED: OXYC1TAB15 PO (13:33)
[2020-05-03] MEDS ORDERED: CYCL10TA2 PO (13:33)
[2020-05-03] MEDS ORDERED: METH4TAB2 PO (13:33)
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
== END 2020-05-03 13:49 | disposition home or self-care (01) ==
LOC: ER 11:53
DX: M79.10 Myalgia, unspecified site (principal); I10 Essential (primary) hypertension; G89.29 Other chronic pain; F17.200 Nicotine dependence, unspecified, uncomplicated; I25.2 Old myocardial infarction; Z88.6 Allergy status to analgesic agent; Z91.041 Radiographic dye allergy status; V87.7XXD Person injured in collision between other specified motor vehicles (traffic), subsequent encounter
CPT/HCPCS: 99284

== ENCOUNTER 2020-06-11 20:43 | Emergency (ER) | payer BC, OTHER ==
[~2020-06-11] VITALS: Ht 177.8 cm; Wt 84.1 kg
[~2020-06-11 20:43] MED LIST changes: +CYCL10TA2 PO; +METH4TAB2 PO
--- NOTE | 2020-06-11 21:08 | ED.ADGEN ---
Past Medical History Past Medical History: Hypertension, [place], Other Additional Past Medical Histor: genital herpes, CHRONIC BACK PAIN Past Surgical History: Other Additional Past Surgical Histo: rt knee surgery, rt chest nipple surgery, TESTICULAR SURGERY Smoking Status: Current Every Day Smoker Alcohol Use: None Drug Use: None General Adult EDM: Chief Complaint: CHEST PAIN HPI: HPI: Patient is a 50 year old male coming in by EMS for chest tightness. The tightness started about 10 hours prior to arrival after he was reading some paperwork about an on-the-job injury and disability stating that he might not build to go back to work. He was being seen by orthopedics for a pinched nerve in his back and doing physical therapy today. Patient said at the time his heart was racing and his blood pressure was high. Has not had episodes of chest tightness before. Patient states that for 5 years ago he was told that he had an NV, had a cath but no stents were placed. Denies any other cardiac history. Has a history of hypertension, denies diabetes. Smokes tobacco and uses methadone, denies any history of IV drug use. No significant family history of heart disease. Pain is gotten better through the day. Was given aspirin by EMS Review of Systems: Review of Systems: Constitutional: Denies fever or chills. [] Eyes: Denies change in visual acuity. [] HENT: Denies nasal congestion or sore throat. [] Respiratory: Denies cough or shortness of breath. [] Cardiovascular: Chest tightness, denies pressure or lower extreme edema GI: Denies abdominal pain, nausea, vomiting, bloody stools or diarrhea. [] : Denies dysuria. [] Musculoskeletal: Denies back pain or joint pain. [] Integument: Denies rash. [] Neurologic: Denies headache, focal weakness or sensory changes. [] Endocrine: Denies polyuria or polydipsia. [] Lymphatic: Denies swollen glands. [] Psychiatric: Denies depression or anxiety. [] Allergies: Allergies: Allergies Coded Allergies Type Severity Reaction Last Updated Verified aspirin Allergy Intermediate rash 03/14/14 Yes I S O L A T I O N *CONTACT* Allergy Unknown 07/18/19 Yes Physical Exam: PE: Constitutional: Well developed, well nourished, no acute distress, non-toxic appearance. [] HENT: Normocephalic, atraumatic, bilateral external ears normal, oropharynx moist, no oral exudates, nose normal. [] Eyes: PERRLA, EOMI, conjunctiva normal, no discharge. [] Neck: Normal range of motion, no tenderness, supple, no stridor. [] Cardiovascular:Heart rate regular rhythm, no murmur [] Lungs & Thorax: Bilateral breath sounds clear to auscultation [] Abdomen: Bowel sounds normal, soft, no tenderness, no masses, no pulsatile masses. [] Skin: Warm, dry, no erythema, no rash. [] Back: No tenderness, no CVA tenderness. [] Extremities: No tenderness, no cyanosis, no clubbing, ROM intact, no edema. [] Neurologic: Alert and oriented X 3, normal motor function, normal sensory function, no focal deficits noted. [] Psychologic: Affect normal, judgement normal, mood normal. [] Current Patient Data: Labs: Laboratory Tests Test 06/11/20 20:55 White Blood Count 7.9 x10^3/uL (4.0-11.0) Red Blood Count 4.12 x10^6/uL (4.30-5.70) L Hemoglobin 11.6 g/dL (13.0-17.5) L Hematocrit 33.2 % (39.0-53.0) L Mean Corpuscular Volume 81 fL (79-100) Mean Corpuscular Hemoglobin 28 pg (25-35) Mean Corpuscular Hemoglobin Concent 35 g/dL (31-37) Red Cell Distribution Width 14.5 % (11.5-14.5) Platelet Count 229 x10^3/uL (140-400) Neutrophils (%) (Auto) 69 % (31-73) Lymphocytes (%) (Auto) 20 % (24-48) L Monocytes (%) (Auto) 9 % (0-9) Eosinophils (%) (Auto) 2 % (0-3) Basophils (%) (Auto) 1 % (0-3) Neutrophils # (Auto) 5.5 x10^3/uL (1.8-7.7) Lymphocytes # (Auto) 1.6 x10^3/uL (1.0-4.8) Monocytes # (Auto) 0.7 x10^3/uL (0.0-1.1) Eosinophils # (Auto) 0.2 x10^3/uL (0.0-0.7) Basophils # (Auto) 0.0 x10^3/uL (0.0-0.2) Prothrombin Time 13.0 SEC (11.7-14.0) Prothrombin Time INR 1.0 (0.8-1.1) D-Dimer (Jeri) 0.46 ug/mlFEU (0.00-0.50) Sodium Level 137 mmol/L (136-145) Potassium Level 4.4 mmol/L (3.5-5.1) Chloride Level 101 mmol/L (98-107) Carbon Dioxide Level 27 mmol/L (21-32) Anion Gap 9 (6-14) Blood Urea Nitrogen 36 mg/dL (8-26) H Creatinine 1.3 mg/dL (0.7-1.3) Estimated GFR (Cockcroft-Gault) 70.1 BUN/Creatinine Ratio 28 (6-20) H Glucose Level 126 mg/dL (70-99) H Calcium Level 8.5 mg/dL (8.5-10.1) Total Bilirubin 0.2 mg/dL (0.2-1.0) Aspartate Amino Transferase (AST) 49 U/L (15-37) H Alanine Aminotransferase (ALT) 25 U/L (16-63) Alkaline Phosphatase 63 U/L (46-116) Troponin I Quantitative < 0.017 ng/mL (0.000-0.055) YM-[id number]-Type Natriuretic Peptide 30 pg/mL (0-124) Total Protein 6.3 g/dL (6.4-8.2) L Albumin 3.3 g/dL (3.4-5.0) L Albumin/Globulin Ratio 1.1 (1.0-1.7) Laboratory Tests 06/11/20 20:55 Laboratory Tests 06/11/20 20:55 Vital Signs: Vital Signs Date Time Temp Pulse Resp B/P (MAP) Pulse Ox O2 Delivery O2 Flow Rate FiO2 06/11/20 20:46 98.7 86 18 150/89 (109) 100 Room Air 98.7 EKG: EKG: Normal sinus rhythm, heart rate 75, no ST elevation or depression, no ectopy, normal intervals, normal axis [] Heart Score: Risk Factors: Risk Factors: DM, Current or recent (<one month) smoker, HTN, HLP, family history of CAD, obesity. Risk Scores: Score 0 - 3: 2.5% MACE over next 6 weeks - Discharge Home Score 4 - 6: 20.3% MACE over next 6 weeks - Admit for Clinical Observation Score 7 - 10: 72.7% MACE over next 6 weeks - Early Invasive Strategies Radiology/Procedures: Radiology/Procedures: PROCEDURE: CHEST PA & LATERAL Chest, PA and Lateral: Technique: PA and lateral views of the chest were obtained. History: Chest tightness. Comparison: 11/09/2012. Findings: The heart and pulmonary vasculature appear within normal limits. Probable nipple shadow projecting in the right lung base.. The pleural margins are clear. Impression: No acute chest process is seen. [] Course & Med Decision Making: Course & Med Decision Making Pertinent Labs and Imaging studies reviewed. (See chart for details) [] Dragon Disclaimer: Dragon Disclaimer: This electronic medical record was generated, in whole or in part, using a voice recognition dictation system. Departure Departure Impression: Primary Impression: Chest pain Disposition: 01 DC HOME SELF CARE/HOMELESS Condition: STABLE Referrals: NO PCP (PCP) Patient Instructions: Chest Pain (Nonspecific) JOSR RINCON MD Jun 11, 2020 21:08
[2020-06-11 21:12] LABS: BASO % 1 % (0-3); EOS # 0.2 x10^3/uL (0.0-0.7); EOS % 2 % (0-3); HEMATOCRIT 33.2 % (39.0-53.0); HEMOGLOBIN 11.6 g/dL (13.0-17.5); LYMPH # 1.6 x10^3/uL (1.0-4.8); LYMPH % 20 % (24-48); MEAN CORPUSCULAR HEMOGLOBIN 28 pg (25-35); MEAN CORPUSCULAR HGB CONC 35 g/dL (31-37); MEAN CORPUSCULAR VOLUME 81 fL (79-100); MONO # 0.7 x10^3/uL (0.0-1.1); MONO % 9 % (0-9); NEUT # 5.5 x10^3/uL (1.8-7.7); NEUT % 69 % (31-73); PLATELET COUNT 229 x10^3/uL (140-400); RED BLOOD COUNT 4.12 x10^6/uL (4.30-5.70); RED CELL DISTRIBUTION WIDTH 14.5 % (11.5-14.5); WHITE BLOOD COUNT 7.9 x10^3/uL (4.0-11.0)
[2020-06-11 21:24] LABS: CALCIUM 8.5 mg/dL (8.5-10.1); CREATININE 1.3 mg/dL (0.7-1.3); D-DIMER 0.46 ug/mlFEU (0.00-0.50); GFR 70.1; POTASSIUM 4.4 mmol/L (3.5-5.1)
[2020-06-11 21:32] LABS: ALBUMIN 3.3 g/dL (3.4-5.0); ALBUMIN/GLOBULIN RATIO 1.1 (1.0-1.7); TOTAL BILIRUBIN 0.2 mg/dL (0.2-1.0); TOTAL PROTEIN 6.3 g/dL (6.4-8.2)
--- NOTE | 2020-06-11 21:48 | RAD ---
Chest, PA and Lateral: Technique: PA and lateral views of the chest were obtained. History: Chest tightness. Comparison: 11/09/2012. Findings: The heart and pulmonary vasculature appear within normal limits. Probable nipple shadow projecting in the right lung base.. The pleural margins are clear. Impression: No acute chest process is seen. Electronically signed by: Moe Byrd MD (06/11/2020 9:44 PM) [id number]
[2020-06-11 22:30] VITALS: BP 133/72
== END 2020-06-11 22:42 | disposition home or self-care (01) ==
LOC: ER 20:43
DX: R07.89 Other chest pain (principal); I10 Essential (primary) hypertension; I25.2 Old myocardial infarction; G89.29 Other chronic pain; F17.200 Nicotine dependence, unspecified, uncomplicated; Z98.890 Other specified postprocedural states; Z88.8 Allergy status to other drugs, medicaments and biological substances
CPT/HCPCS: 36415; 71046; 80053; 83880; 84484; 85025; 85379; 85610; 93005; 99284; 99285

== ENCOUNTER 2020-06-28 15:48 | Emergency (ER) | payer OTHER, BC ==
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
== END 2020-06-28 16:50 | disposition left against medical advice (07) ==
LOC: ER 15:48
DX: M54.5 Low back pain (principal); M25.511 Pain in right shoulder; G89.29 Other chronic pain; I10 Essential (primary) hypertension; F17.200 Nicotine dependence, unspecified, uncomplicated; Z88.6 Allergy status to analgesic agent; Z91.041 Radiographic dye allergy status
CPT/HCPCS: 99281

== ENCOUNTER 2021-06-26 16:06 | Emergency (ER) | payer BC, OTHER ==
[~2021-06-26 16:06] MED LIST changes: +ACYC-12 PO; -ACYC400T PO; -ACYC800T PO; +ACYC800T88 PO; +CLIN-94 PO; -CLIN300C8 PO; +CYCL10TA19 PO; -CYCL10TA2 PO
== END 2021-06-26 18:24 | disposition left against medical advice (07) ==
LOC: ER 16:06
DX: L98.8 Other specified disorders of the skin and subcutaneous tissue (principal); Z53.21 Procedure and treatment not carried out due to patient leaving prior to being seen by health care provider

== ENCOUNTER 2021-06-28 09:40 | Emergency (ER) | payer BC ==
[~2021-06-28] VITALS: Ht 175.3 cm; Wt 86.2 kg
[2021-06-28 09:52] VITALS: BP 156/88
[2021-06-28] MEDS ORDERED: DEXAMETHASONE SOD PHOS 4 MG/ML VIAL IVP ONE (10:30)
[2021-06-28] MEDS ORDERED: HYDR453.3 TP (10:58)
[2021-06-28] MEDS ORDERED: MINE50OI TP (10:58)
--- NOTE | 2021-06-28 10:59 | PHYS DOC ---
Past Medical History Past Medical History: Hypertension, Other Additional Past Medical Histor: GENITAL HERPES? Past Surgical History: Other Additional Past Surgical Histo: RIGHT ANKLE FX/SX,NIPPLE SURG Smoking Status: Current Every Day Smoker Additional Information: 0.5 TO 0.75 PPD Alcohol Use: None Drug Use: None General Adult EDM: Chief Complaint: SKIN PROBLEM HPI: HPI: Patient is a 51 year old male who presents with a rash on his ears, hands and scrotum. Patient reports he has pain 6/10 due to the cuts appearing in the rash on his hands and ears. Patient reports he was told 6 years ago that the rash on his scrotum was genital herpes, but a blood test during a physical revealed he did not have herpes simplex virus. The rash has been chronic on his scrotum for the past 6 years, but is now appearing at the base of his penis as well. Patient has been evaluated by dermatology in the past. He is unsure what sort of cream he was prescribed, but he is since stopped using it. Patient consistently uses Vaseline on the rash. He denies fever, chills, discharge from the rash, blistering. Review of Systems: Review of Systems: ROS negative except as mentioned in HPI. Heart Score: C/O Chest Pain: No Current Medications: Current Medications Medications (Trade) Dose Ordered Sig/Kylah Start Time Stop Time Status Last Admin Dose Admin Dexamethasone Sodium Phosphate (Decadron) 8 mg 1X ONCE 06/28/21 10:30 06/28/21 10:31 DC Allergies: Allergies: Allergies Coded Allergies Type Severity Reaction Last Updated Verified aspirin Allergy Intermediate rash 03/14/14 Yes I S O L A T I O N *CONTACT* Allergy Unknown 07/18/19 Yes Physical Exam: PE: Constitutional: Well developed, well nourished, no acute distress, non-toxic appearance. HENT: Normocephalic, atraumatic, bilateral external ears normal, nose normal. Eyes: PERRLA, EOMI, conjunctiva normal, no discharge. Cardiovascular: Heart rate regular rhythm, no murmur. Lungs & Thorax: Bilateral breath sounds clear to auscultation. Skin: Bilateral hands from the MCP through DIP joints have dry, flaking slightly raised rash with few cracks. Bilateral auricles also have dry, flaking skin. Left auricle has open abrasion that appears consistent with patient scratching. The rash to the scrotum is thick, dry, course without drainage or vesicles; winifred ecially noticeable on the lateral aspects of the scrotum and near the fold between scrotum and penis. Neurologic: Alert and oriented x4, motor function grossly intact, sensory function grossly intact, no focal deficits noted. Current Patient Data: Vital Signs: Vital Signs Date Time Temp Pulse Resp B/P (MAP) Pulse Ox O2 Delivery O2 Flow Rate FiO2 06/28/21 09:52 98.5 91 17 156/88 (110) 97 Room Air 98.5 Course & Med Decision Making: Course & Med Decision Making Pertinent Labs and Imaging studies reviewed. (See chart for details) The patient's rash seems consistent with possible psoriasis vs eczema versus extreme dry skin. Patient advised dermatology specialists will be able to provide him with more definitive diagnosis and treatments. For the time being, patient will be given IM dexamethasone as well as additional topical treatments for his discomfort. Suggested that the patient buy Aquaphor or the generic store brand for extreme dry skin. Patient will also be provided with a prescription steroid cream to use for the next 5 days, but no longer. He should follow-up with dermatology. Patient understands and is agreeable to discharge plan. Dragon Disclaimer: [email or web address] Disclaimer: This electronic medical record was generated, in whole or in part, using a voice recognition dictation system. Departure Departure Impression: Primary Impression: Dry skin dermatitis Additional Impression: Rash on scrotum Disposition: 01 HOME / SELF CARE / HOMELESS Condition: STABLE Referrals: CASTRO DOCKERY (PCP) Patient Instructions: Hand Dermatitis, [id number] Additional Instructions: [facility] [address] [place] [address] ? Hours: Thursday - Thursday 8:00 am - 5:00 pm Please call the above dermatology clinic to schedule an appointment at your ea rliest convenience. As discussed, you may use the topical steroid cream prescribed to you in combination with Aquaphor topical lotion. You should reapply Aquaphor at least 4 times per day until your skin becomes less irritated. You may use the hydrocortisone cream in your groin twice per day, but only for a period of 5 days. Scripts Hydrocortisone (HYDROCORTISONE) 453.6 Gm Cream..g. 1 IRAIS TP BID, #1 BOX Prov: DEMI AHN 06/28/21 Mineral Oil/Hydrophil Petrolat (AQUAPHOR HEALING OINTMENT) 50 Gm Oint...g. 1 IRAIS TP QID, #1 EACH 0 Refills Prov: DEMI AHN 06/28/21 DEMI AHN Jun 28, 2021 10:59
[2021-06-28] MEDS ORDERED: DEXAMETHASONE SOD PHOS 4 MG/ML VIAL IM ONE (11:15)
== END 2021-06-28 11:09 | disposition home or self-care (01) ==
LOC: ER 09:40
DX: L85.3 Xerosis cutis (principal); R21 Rash and other nonspecific skin eruption; F17.200 Nicotine dependence, unspecified, uncomplicated; Z88.6 Allergy status to analgesic agent; Z91.041 Radiographic dye allergy status
CPT/HCPCS: 99282

== ENCOUNTER 2021-11-15 18:22 | Emergency (ER) | payer BC ==
[~2021-11-15] VITALS: Ht 177.8 cm; Wt 83.8 kg
[~2021-11-15 18:22] MED LIST changes: +HYDR453.3 TP; +MINE50OI TP
[2021-11-15 18:25] VITALS: BP 148/65
[2021-11-15] MEDS ORDERED: TRIA15OI TP (19:19)
[2021-11-15] MEDS ORDERED: DESO15OI3 TP (19:19)
[2021-11-15] MEDS ORDERED: METH4TAB2 PO (19:19)
--- NOTE | 2021-11-15 19:20 | PHYS DOC ---
Past Medical History Past Medical History: Hypertension, Other Additional Past Medical Histor: GENITAL HERPES? Past Surgical History: Other Additional Past Surgical Histo: RIGHT ANKLE FX/SX,NIPPLE SURG Smoking Status: Current Every Day Smoker Alcohol Use: None Drug Use: None General Adult EDM: Chief Complaint: MALE UROGENITAL PROBLEMS HPI: HPI: Patient is a 51 year old male who presents with rash in his groin area and his body. This is a chronic rash that has been going on for 6 years. He is currently on triamcinolone cream which he ran out of. Has a appointment with a foreign service teacher in February. States that he does not know the name of his exact diagnosis but gets rashes on his elbows groin area and scrotum and ears. States that he was told he has a chronic condition and his blood that will never go away. No fever or chills. No dysuria urgency or frequency. No vomiting or diarrhea. No new medications. Review of Systems: Review of Systems: Constitutional: Denies fever or chills. [] Eyes: Denies change in visual acuity. [] HENT: Denies nasal congestion or sore throat. [] Respiratory: Denies cough or shortness of breath. [] Cardiovascular: Denies chest pain or edema. [] GI: Denies abdominal pain, nausea, vomiting, bloody stools or diarrhea. [] : Denies dysuria. [] Musculoskeletal: Denies back pain or joint pain. [] Integument: Denies rash. [] Neurologic: Denies headache, focal weakness or sensory changes. [] Endocrine: Denies polyuria or polydipsia. [] Lymphatic: Denies swollen glands. [] Psychiatric: Denies depression or anxiety. [] Heart Score: C/O Chest Pain: No Risk Factors: Risk Factors: DM, Current or recent (<one month) smoker, HTN, HLP, family history of CAD, obesity. Risk Scores: Score 0 - 3: 2.5% MACE over next 6 weeks - Discharge Home Score 4 - 6: 20.3% MACE over next 6 weeks - Admit for Clinical Observation Score 7 - 10: 72.7% MACE over next 6 weeks - Early Invasive Strategies Allergies: Allergies: Allergies Coded Allergies Type Severity Reaction Last Updated Verified aspirin Allergy Intermediate rash 03/14/14 Yes I S O L A T I O N *CONTACT* Allergy Unknown 07/18/19 Yes Physical Exam: PE: Constitutional: Well developed, well nourished, no acute distress, non-toxic appearance. [] HENT: Normocephalic, atraumatic, bilateral external ears normal, oropharynx moist, no oral exudates, nose normal. [] Eyes: PERRLA, EOMI, conjunctiva normal, no discharge. [] Neck: Normal range of motion, no tenderness, supple, no stridor. [] Cardiovascular:Heart rate regular rhythm, no murmur [] Lungs & Thorax: Bilateral breath sounds clear to auscultation [] Abdomen: Bowel sounds normal, soft, no tenderness, no masses, no pulsatile ma sses. Scrotal examination shows a white crusty rash the entire scrotum [] Skin: Dry plaques appear on both elbows Back: No tenderness, no CVA tenderness. [] Extremities: No tenderness, no cyanosis, no clubbing, ROM intact, no edema. [] Neurologic: Alert and oriented X 3, normal motor function, normal sensory function, no focal deficits noted. [] Psychologic: Affect normal, judgement normal, mood normal. [] Current Patient Data: Vital Signs: Vital Signs Date Time Temp Pulse Resp B/P (MAP) Pulse Ox O2 Delivery O2 Flow Rate FiO2 11/15/21 18:25 99.1 94 18 148/65 (92) 98 Room Air 99.1 EKG: EKG: [] Radiology/Procedures: Radiology/Procedures: [] Course & Med Decision Making: Course & Med Decision Making Given patient's presentation I suspect he has psoriasis. Unfortunately he also has groin genital psoriasis as well. This is likely why he was placed on triamcinolone cream and seen a foreign service teacher in the past for chronic condition. He is switching foreign service teacher currently. I will represcribed the patient's tr iamcinolone cream along with some desonide and a short burst of steroids to give him some relief. Patient agrees to continue to follow-up with his foreign service teacher Margarita Disclaimer: Margarita Disclaimer: This electronic medical record was generated, in whole or in part, using a voice recognition dictation system. Departure Departure Impression: Primary Impression: Psoriasis Disposition: HOME / SELF CARE / HOMELESS Condition: STABLE Referrals: CASTRO DOCKERY (PCP) Patient Instructions: Psoriasis, Takz-hm-Bumx Scripts Methylprednisolone (MEDROL) 4 Mg Tab.ds.pk 1 PKG PO UD for inflammation, #1 PKG Prov: BINA HILL MD 11/15/21 Triamcinolone Acetonide (TRIAMCINOLONE ACETONIDE 0.1% OINT) 15 Gm Oint...g. 1 IRAIS TP DAILY for WOUND CARE, #1 EACH 1 Refill MIX WITH EUCERIN Apply to all parts of body with rash minus the groin area Prov: BINA HILL MD 11/15/21 Desonide (DESONIDE) 15 Gm Oint...g. 1 IRAIS TP DAILY PRN for RASH for 7 Days, #15 GM 0 Refills apply to groin area Prov: BINA HILL MD 11/15/21 BINA HILL MD Nov 15, 2021 19:20
== END 2021-11-15 19:50 | disposition home or self-care (01) ==
LOC: ER 18:22
DX: L40.9 Psoriasis, unspecified (principal); I10 Essential (primary) hypertension; F17.200 Nicotine dependence, unspecified, uncomplicated; Z88.6 Allergy status to analgesic agent; Z91.041 Radiographic dye allergy status
CPT/HCPCS: 99283

== ENCOUNTER 2021-12-02 08:11 | Emergency (ER) | payer BC ==
[~2021-12-02] VITALS: Ht 175.3 cm; Wt 81.6 kg
[~2021-12-02 08:11] MED LIST changes: +DESO15OI3 TP; +TRIA15OI TP
[2021-12-02] MEDS ORDERED: methylPREDNISolone SOD SUCC PF 125 MG/2 ML VIAL. IM ONE (09:15)
[2021-12-02 09:21] VITALS: BP 130/70
[2021-12-02] MEDS ORDERED: TRIA15CR TP (09:26)
--- NOTE | 2021-12-02 09:27 | PHYS DOC ---
Past Medical History Past Medical History: Hypertension, Other Additional Past Medical Histor: GENITAL HERPES?- PT DENIES HERPES, REPORTS CHRONIC RASH Past Surgical History: Other Additional Past Surgical Histo: RIGHT ANKLE FX/SX,NIPPLE SURG Smoking Status: Current Every Day Smoker Alcohol Use: None Drug Use: None General Adult EDM: Chief Complaint: SKIN RASH/ABSCESS HPI: HPI: Patient is a 51 year old male who presents with rash in his groin area, body, hands, neck area This is a chronic rash that has been going on for 6 years He has an appointment with a pool technician in February. States that he does not know the name of his exact diagnosis but gets rashes on his elbows groin area and scrotum and ears. States that he was told he has a chronic condition is his blood that will never go away. No fever or chills. Patient ran out of his triamcinolone cream so he was seen here on November 15. Patient was given a prescription for triamcinolone ointment. Patient said he has been using the ointment and feels like it made his rash more itchy. So he came in for evaluation. Review of Systems: Review of Systems: Constitutional: Denies fever or chills. [] Eyes: Denies change in visual acuity. [] HENT: Denies nasal congestion or sore throat. [] Respiratory: Denies cough or shortness of breath. [] Cardiovascular: Denies chest pain or edema. [] GI: Denies abdominal pain, nausea, vomiting, bloody stools or diarrhea. [] : Denies dysuria. [] Musculoskeletal: Denies back pain or joint pain. [] Integument: Positive for itchy rash Neurologic: Denies headache, focal weakness or sensory changes. [] Endocrine: Denies polyuria or polydipsia. [] Lymphatic: Denies swollen glands. [] Psychiatric: Denies depression or anxiety. [] Heart Score: C/O Chest Pain: N/A Risk Factors: Risk Factors: DM, Current or recent (<one month) smoker, HTN, HLP, family history of CAD, obesity. Risk Scores: Score 0 - 3: 2.5% MACE over next 6 weeks - Discharge Home Score 4 - 6: 20.3% MACE over next 6 weeks - Admit for Clinical Observation Score 7 - 10: 72.7% MACE over next 6 weeks - Early Invasive Strategies Current Medications: Current Medications Medications (Trade) Dose Ordered Sig/Kylah Start Time Stop Time Status Last Admin Dose Admin Methylprednisolone Sodium Succinate (SOLU-Medrol 125MG VIAL) 125 mg 1X ONCE 12/02/21 09:15 12/02/21 09:16 DC 12/02/21 09:15 125 MG Allergies: Allergies: Allergies Coded Allergies Type Severity Reaction Last Updated Verified aspirin Allergy Intermediate rash 03/14/14 Yes I S O L A T I O N *CONTACT* Allergy Unknown 07/18/19 Yes Physical Exam: PE: Constitutional: Well developed, well nourished, no acute distress, non-toxic appearance. [] HENT: Normocephalic, atraumatic, bilateral external ears normal, oropharynx moist, no oral exudates, nose normal. [] Eyes: PERRLA, EOMI, conjunctiva normal, no discharge. [] Neck: Normal range of motion, no tenderness, supple, no stridor. [] Cardiovascular:Heart rate regular rhythm, no murmur [] Lungs & Thorax: Bilateral breath sounds clear to auscultation [] Abdomen: Bowel sounds normal, soft, no tenderness, no masses, no pulsatile masses. [] Skin: White plaque rash on the extensor surface of the head hand, elbow, knees area, back of his neck Back: No tenderness, no CVA tenderness. [] Extremities: No tenderness, no cyanosis, no clubbing, ROM intact, no edema. [] Neurologic: Alert and oriented X 3, normal motor function, normal sensory fu nction, no focal deficits noted. [] Psychologic: Affect normal, judgement normal, mood normal. [] Current Patient Data: Vital Signs: Vital Signs Date Time Temp Pulse Resp B/P (MAP) Pulse Ox O2 Delivery O2 Flow Rate FiO2 12/02/21 09:21 55 16 130/70 (90) 98 12/02/21 08:30 98.6 Room Air 98.6 EKG: EKG: [] Radiology/Procedures: Radiology/Procedures: [] Course & Med Decision Making: Course & Med Decision Making Pertinent Labs and Imaging studies reviewed. (See chart for details) Patient is a 50-year-old male who present to ER due to exacerbation of his chronic rash. The rash appears to be psoriasis. Patient did not tolerate the triamcinolone ointment. He had used triamcinolone cream in the past and it work ed for him. Therefore I will prescribe him a higher dose of triamcinolone cream, patient will need to follow-up with his pool technician. Margarita Disclaimer: Margarita Disclaimer: This electronic medical record was generated, in whole or in part, using a voice recognition dictation system. Departure Departure Impression: Primary Impression: Psoriasis and similar disorder Disposition: HOME / SELF CARE / HOMELESS Condition: STABLE Referrals: CASTRO DOCKERY (PCP) Follow up with your doctor this week Patient Instructions: Psoriasis Scripts Triamcinolone Acetonide (TRIAMCINOLONE ACETONIDE 0.5% CREAM) 15 Gm Cream..g. 1 IRAIS TP TID PRN for RASH, #90 GM Prov: GIACOMO RUBIN DO 12/02/21 GIACOMO RUBIN DO Dec 02, 2021 09:27
== END 2021-12-02 09:30 | disposition home or self-care (01) ==
LOC: ER 08:11
DX: L40.9 Psoriasis, unspecified (principal); I10 Essential (primary) hypertension; F17.200 Nicotine dependence, unspecified, uncomplicated; Z91.041 Radiographic dye allergy status; Z88.6 Allergy status to analgesic agent
CPT/HCPCS: 96372; 99283; J2930

== ENCOUNTER → 2021-12-23 | Emergency (ER) | payer BC ==
[~2021-12-23] VITALS: Ht 175.3 cm; Wt 79.9 kg
[~2021-12-23] MED LIST changes: +FAMOTIDINE 20 MG/2 ML VIAL ONE; +LIDO:MAALOX 1:1 20 ML SINGLE DOSE. ONE; +MORPHINE SULFATE 4 MG/ML INJ. ONE; +ONDANSETRON PF 4 MG/2 ML VIAL. ONE; +TRIA15CR TP
[2021-12-24 01:00] LABS: BASO % 1 % (0-3); EOS % 0 % (0-3); HEMATOCRIT 34.7 % (39.0-53.0); HEMOGLOBIN 11.6 g/dL (13.0-17.5); LYMPH # 1.1 x10^3/uL (1.0-4.8); LYMPH % 14 % (24-48); MEAN CORPUSCULAR HEMOGLOBIN 27 pg (25-35); MEAN CORPUSCULAR HGB CONC 33 g/dL (31-37); MEAN CORPUSCULAR VOLUME 81 fL (79-100); MONO # 0.7 x10^3/uL (0.0-1.1); MONO % 9 % (0-9); NEUT # 6.2 x10^3/uL (1.8-7.7); NEUT % 77 % (31-73); PLATELET COUNT 280 x10^3/uL (140-400); RED BLOOD COUNT 4.27 x10^6/uL (4.30-5.70); RED CELL DISTRIBUTION WIDTH 14.9 % (11.5-14.5); WHITE BLOOD COUNT 8.1 x10^3/uL (4.0-11.0)
[2021-12-24 01:33] LABS: CALCIUM 9.3 mg/dL (8.5-10.1); CREATININE 1.4 mg/dL (0.7-1.3); GFR 64.1; POTASSIUM 4.1 mmol/L (3.5-5.1)
[2021-12-24 01:38] LABS: ALBUMIN 3.9 g/dL (3.4-5.0); DIRECT BILIRUBIN 0.1 mg/dL (0.0-0.2); TOTAL BILIRUBIN 0.5 mg/dL (0.2-1.0)
[2021-12-24 02:30] VITALS: BP 124/66
--- NOTE | 2021-12-24 09:54 | RAD ---
INDICATION: Reason: ABDOMINAL PAIN / Spl. Instructions: / History: COMPARISON: April 2020 TECHNIQUE: Axial CT images were obtained through the abdomen and pelvis without intravenous contrast. One or more of the following individualized dose reduction techniques were utilized for this examinat ion: 1. Automated exposure control; 2. Adjustment of the mA and/or kV according to patient size; 3 . Use of iterative reconstruction technique. FINDINGS: Vascular: Moderate calcific atherosclerosis. Hepatobiliary: No intrahepatic biliary duct dilation. Pancreas: Mild prominence of pancreatic duct again seen. Spleen: Spleen unremarkable. Renal/Bladder: 13 mm low-density nodule of the left adrenal gland. Could be from causes such as adeno ma or hyperplasia. Cystic lesion of the left kidney is again seen measuring approximately 46 mm. Ther e are couple of additional low-density lesions visualized on the prior examination postcontrast that are not as well evaluated on the current noncontrast exam. Urinary bladder is partially distended. Lo w-density lesion of the right kidney which may be cystic in nature again seen measuring approximately 17 mm. Similar smaller previously seen right renal lesions are not well seen on this noncontrast exa m. No hydronephrosis. Gastrointestinal: Colonic diverticulosis. The appendix measures approximately 6 mm without adjacent i nflammatory changes. No dilated loops of bowel to suggest obstruction. There is some subcutaneous nodularity of the fat overlying the left inferior gluteal region. Degenerative changes of the hips and spine. There is an ossified structure seen just anterior to the right hip joint which could be from a loose body in the area. Mild wedging T12 and L1 vertebral body. Multilevel central canal and neural foraminal stenosis. IMPRESSION: * No evidence of bowel obstruction or appendicitis. * Multiple low-density bilateral renal lesions with the largest 1's having the appearance of cystic lesions and some of them not well characterized on this noncontrast exam. Electronically signed by: Hernan Arredondo MD (12/24/2021 9:51 AM) [id number]
--- NOTE | 2021-12-24 14:01 | PHYS DOC ---
Past Medical History Past Medical History: Hypertension, Other Additional Past Medical Histor: GENITAL HERPES?- PT DENIES HERPES, REPORTS CHRONIC RASH Past Surgical History: Other Additional Past Surgical Histo: RIGHT ANKLE FX/SX,NIPPLE SURG Smoking Status: Never Smoker Alcohol Use: None Drug Use: None General Adult EDM: Chief Complaint: DIZZY/LIGHT HEADED HPI: HPI: Patient is a 51 year old male with history of hypertension who presents to the ED today to be evaluated for dizziness, nausea, vomiting, and generalized abdominal pain, symptoms began today. Patient denies anything specifically exacerbating or relieving his symptoms. Rates his abdominal pain at 10 out of 10 describing it as cramping. Review of Systems: Review of Systems: Constitutional: Denies fever or chills. [] Eyes: Denies change in visual acuity. [] HENT: Denies nasal congestion or sore throat. [] Respiratory: Denies cough or shortness of breath. [] Cardiovascular: Denies chest pain or edema. [] GI: Reports generalized abdominal pain, nausea, vomiting, denies any bloody stools or diarrhea : Denies dysuria. [] Musculoskeletal: Denies back pain or joint pain. [] Integument: Denies rash. [] Neurologic: Denies headache, focal weakness or sensory changes. [] [] Psychiatric: Denies depression or anxiety. [] Heart Score: C/O Chest Pain: N/A Risk Factors: Risk Factors: DM, Current or recent (<one month) smoker, HTN, HLP, family history of CAD, obesity. Risk Scores: Score 0 - 3: 2.5% MACE over next 6 weeks - Discharge Home Score 4 - 6: 20.3% MACE over next 6 weeks - Admit for Clinical Observation Score 7 - 10: 72.7% MACE over next 6 weeks - Early Invasive Strategies Current Medications: Current Medications Medications (Trade) Dose Ordered Sig/Kylah Start Time Stop Time Status Last Admin Dose Admin Famotidine (Pepcid Vial) 20 mg STK-MED ONCE 12/24/21 01:02 12/24/21 09:08 DC Morphine Sulfate (Morphine Sulfate) 4 mg STK-MED ONCE 12/24/21 01:02 12/24/21 09:08 DC Multi-Ingredient Mouthwash/Gargle (Gi Cocktail) 20 ml STK-MED ONCE 12/24/21 01:02 12/24/21 09:08 DC Ondansetron HCl (Zofran) 4 mg STK-MED ONCE 12/24/21 02:25 12/24/21 09:09 DC Allergies: Allergies: Allergies Coded Allergies Type Severity Reaction Last Updated Verified aspirin Allergy Intermediate rash 03/14/14 Yes I S O L A T I O N *CONTACT* Allergy Unknown 07/18/19 Yes Physical Exam: PE: Constitutional: Well developed, well nourished, no acute distress, non-toxic appearance. [] HENT: Normocephalic, atraumatic, bilateral external ears normal, oropharynx moist, no oral exudates, nose normal. [] Eyes: PERRLA, EOMI, conjunctiva normal, no discharge. [] Neck: Normal range of motion, no tenderness, supple, no stridor. [] Cardiovascular:Heart rate regular rhythm, no murmur [] Lungs & Thorax: Bilateral breath sounds clear to auscultation [] Abdomen: Bowel sounds normal, soft, no tenderness, no masses, no pulsatile masses. [] Skin: Warm, dry, no erythema, no rash. [] Back: No tenderness, no CVA tenderness. [] Extremities: No tenderness, no cyanosis, no clubbing, ROM intact, no edema. [] Neurologic: Alert and oriented X 3, normal motor function, normal sensory function, no focal deficits noted. [] Psychologic: Affect normal, judgement normal, mood normal. [] Current Patient Data: Labs: Laboratory Tests Test 12/24/21 00:55 12/24/21 01:15 White Blood Count 8.1 x10^3/uL (4.0-11.0) Red Blood Count 4.27 x10^6/uL (4.30-5.70) L Hemoglobin 11.6 g/dL (13.0-17.5) L Hematocrit 34.7 % (39.0-53.0) L Mean Corpuscular Volume 81 fL (79-100) Mean Corpuscular Hemoglobin 27 pg (25-35) Mean Corpuscular Hemoglobin Concent 33 g/dL (31-37) Red Cell Distribution Width 14.9 % (11.5-14.5) H Platelet Count 280 x10^3/uL (140-400) Neutrophils (%) (Auto) 77 % (31-73) H Lymphocytes (%) (Auto) 14 % (24-48) L Monocytes (%) (Auto) 9 % (0-9) Eosinophils (%) (Auto) 0 % (0-3) Basophils (%) (Auto) 1 % (0-3) Neutrophils # (Auto) 6.2 x10^3/uL (1.8-7.7) Lymphocytes # (Auto) 1.1 x10^3/uL (1.0-4.8) Monocytes # (Auto) 0.7 x10^3/uL (0.0-1.1) Eosinophils # (Auto) 0.0 x10^3/uL (0.0-0.7) Basophils # (Auto) 0.0 x10^3/uL (0.0-0.2) Sodium Level 136 mmol/L (136-145) Potassium Level 4.1 mmol/L (3.5-5.1) Chloride Level 99 mmol/L (98-107) Carbon Dioxide Level 27 mmol/L (21-32) Anion Gap 10 (6-14) Blood Urea Nitrogen 26 mg/dL (8-26) Creatinine 1.4 mg/dL (0.7-1.3) H Estimated GFR (Cockcroft-Gault) 64.1 BUN/Creatinine Ratio 19 (6-20) Glucose Level 117 mg/dL (70-99) H Calcium Level 9.3 mg/dL (8.5-10.1) Total Bilirubin 0.5 mg/dL (0.2-1.0) Direct Bilirubin 0.1 mg/dL (0.0-0.2) Aspartate Amino Transferase (AST) 18 U/L (15-37) Alanine Aminotransferase (ALT) 16 U/L (16-63) Alkaline Phosphatase 77 U/L (46-116) Troponin I High Sensitivity 9 ng/L (4-75) QV-Eax-A-Type Natriuretic Peptide 287 pg/mL (0-124) H Total Protein 8.0 g/dL (6.4-8.2) Albumin 3.9 g/dL (3.4-5.0) Albumin/Globulin Ratio 1.0 (1.0-1.7) Lipase 833 U/L (73-393) H Laboratory Tests 12/24/21 00:55 Laboratory Tests 12/24/21 01:15 Vital Signs: Vital Signs Date Time Temp Pulse Resp B/P (MAP) Pulse Ox O2 Delivery O2 Flow Rate FiO2 12/24/21 02:30 62 124/66 (85) 98 EKG: EKG: [] Radiology/Procedures: Radiology/Procedures: [] Course & Med Decision Making: Course & Med Decision Making Pertinent Labs and Imaging studies reviewed. (See chart for details) This a 51-year-old male patient presented to the ED today complaining of generalized abdominal pain, dizziness, nausea and vomiting, symptoms began today. [address] Browning patient was seen and discharged during [facility] Dragon Disclaimer: Dragon Disclaimer: This electronic medical record was generated, in whole or in part, using a voice recognition dictation system. Departure Departure Impression: Primary Impression: Dizziness Additional Impressions: Generalized abdominal pain Nausea & vomiting Qualified Codes: R11.2 - Nausea with vomiting, unspecified Disposition: 01 HOME / SELF CARE / HOMELESS Condition: STABLE Referrals: CASTRO DOCKERY (PCP) ELIEZER MANZANO [employer]STRUCTION SUPERINTENDENT December 24, 2021 14:01
--- NOTE | 2021-12-26 16:19 | EKG ---
[facility] [address] [place] [address] Test Date: 2021-12-23 Test Time: 23:37:11 Pat Name: ROQUE ARAUJO Department: Room: Gender: Dolly Operator: [facility] ER : 1970 Requested By: RODERICK SANCHES Order Number: [id number] Reading MD: Daniel London Measurements Intervals [place] Rate: 67 P: 39 SC: 158 QRS: 51 QRSD: 88 T: 49 QT: 396 QTc: 421 Interpretive Statements SINUS RHYTHM NON SPECIFIC ST CHANGES Electronically Signed On 12-27-2021 10:36:48 CDT by Daniel London
== END | disposition home or self-care (01) ==
LOC: ER 22:49
DX: R42 Dizziness and giddiness (principal); R10.84 Generalized abdominal pain; R11.2 Nausea with vomiting, unspecified; I10 Essential (primary) hypertension; Z91.041 Radiographic dye allergy status; Z88.6 Allergy status to analgesic agent
CPT/HCPCS: 36415; 74176; 80053; 82248; 83690; 83880; 84484; 85025; 93005; 99285-25